=== PATIENT | female | born 1950 | race Caucasian/White ===

== ENCOUNTER → 2017-03-03 | Outpatient (CLI) | payer OTHER ==
[~2017-03-03] MED LIST: ESTR0.3T PO; EZET10TA63 PO; FENO48TA9 PO; GLCSR500 PO
[2017-03-03 13:51] LABS: HEMOGLOBIN A1C 6.5 % (4.5-5.6)
[2017-03-03 14:18] LABS: BASO % 0.4 %; BASO ABS # 0.03 K/uL (0-0.2); EOS % 1.8 %; EOS ABS # 0.14 K/uL (0-0.5); HEMATOCRIT 40.5 % (37-47); HEMOGLOBIN 13.5 g/dL (12.0-16.0); IG# 0.02 K/uL (0.00-0.02); LYMPH % 25.5 %; LYMPH ABS # 1.96 K/uL (1.2-3.4); MEAN CELL VOLUME 95.3 fL (80-100); MEAN CORPUSCULAR HEMOGLOBIN 31.8 pg (25-34); MEAN CORPUSCULAR HGB CONC 33.3 g/dl (32-36); MEAN PLATELET VOLUME 12.1 fL (7.4-10.4); MONO % 7.8 %; NEUT % 64.2 %; NEUT ABS # 4.93 K/uL (1.4-6.5); PLATELET COUNT 260 K/uL (130-400); RED CELL DISTRIBUTION WIDTH CV 13.4 % (11.5-14.5); RED CELL DISTRIBUTION WIDTH SD 46.3 fL (36.4-46.3); WHITE BLOOD COUNT 7.68 K/uL (4.8-10.8)
[2017-03-03 14:57] LABS: ALBUMIN 4.3 gm/dl (3.4-5.0); ALT/SGPT 32 U/L (12-78); AST/SGOT 20 U/L (15-37); BLOOD UREA NITROGEN 17 mg/dl (7-18); CALCIUM 9.5 mg/dl (8.5-10.1); CARBON DIOXIDE 30 mmol/L (21-32); CREATININE 0.97 mg/dl (0.60-1.20); GLUCOSE 115 mg/dl (70-99); POTASSIUM 4.2 mmol/L (3.5-5.1); SODIUM 137 mmol/L (136-145)
[2017-03-03 15:09] LABS: ALKALINE PHOSPHATASE 49 U/L (45-117); CHOLESTEROL 259 mg/dl (0-200); LDL CHOLESTEROL CALCULATED 164 mg/dl
== END | disposition home or self-care (01) ==
LOC: C.LABBC 09:54
PROVIDERS: ATTEND Internal Medicine Geriatric Medicine
DX: E11.9 Type 2 diabetes mellitus without complications (principal); I10 Essential (primary) hypertension; E78.5 Hyperlipidemia, unspecified; E03.9 Hypothyroidism, unspecified

== ENCOUNTER → 2017-04-15 | Outpatient (CLI) | payer OTHER ==
--- NOTE | 2017-04-15 15:06 | MAMMOGRAPHY REPORT ---
BILATERAL DIGITAL SCREENING MAMMOGRAM TOMOSYNTHESIS WITH CAD: 04/15/2017 CLINICAL HISTORY: Routine screening. Patient has no complaints. TECHNIQUE: Breast tomosynthesis in addition to standard 2D mammography was performed. Current study was also evaluated with a Computer Aided Detection (CAD) system. COMPARISON: Comparison is made to exam dated: 06/10/2010 mammogram - [facility]. BREAST COMPOSITION: There are scattered areas of fibroglandular density in both breasts. FINDINGS: No suspicious masses, calcifications, or areas of architectural distortion are noted in ei ther breast. There has been no significant interval change compared to prior exams. Scattered bilate ral benign-appearing calcifications are again noted. IMPRESSION: ACR BI-RADS CATEGORY 2: BENIGN There is no mammographic evidence of malignancy. A 1 year screening mammogram is recommended. The pa tient will receive written notification of the results. Approximately 10% of breast cancers are not detected with mammography. A negative mammographic report should not delay biopsy if a clinically suggestive mass is present. Lisa Kamara M.D. ah/:04/15/2017 14:43:59 Garden Consultant: Abbie DEJESUS(Jesus)(Isabel), [facility] letter sent: Normal 1/2 BI-RADS Code: ACR BI-RADS Category 2: Benign
== END | disposition home or self-care (01) ==
LOC: C.MAMM 13:42
PROVIDERS: ATTEND Internal Medicine Geriatric Medicine
DX: Z12.31 Encounter for screening mammogram for malignant neoplasm of breast (principal)

== ENCOUNTER → 2017-07-02 | Outpatient (CLI) | payer OTHER ==
[2017-07-02 12:32] LABS: HEMOGLOBIN A1C 6.9 % (4.5-5.6)
[2017-07-02 12:55] LABS: CREATININE RANDOM URINE 94.6 mg/dl
[2017-07-02 12:56] LABS: ALBUMIN 4.2 gm/dl (3.4-5.0); ALT/SGPT 27 U/L (12-78); AST/SGOT 20 U/L (15-37); BLOOD UREA NITROGEN 17 mg/dl (7-18); CALCIUM 9.1 mg/dl (8.5-10.1); CARBON DIOXIDE 28 mmol/L (21-32); CHOLESTEROL 269 mg/dl (0-200); CREATININE 0.98 mg/dl (0.60-1.20); GLUCOSE 113 mg/dl (70-99); POTASSIUM 4.2 mmol/L (3.5-5.1); SODIUM 134 mmol/L (136-145)
[2017-07-02 13:05] LABS: ALKALINE PHOSPHATASE 48 U/L (45-117); LDL CHOLESTEROL CALCULATED 190 mg/dl; TOTAL PROTEIN 7.7 gm/dl (6.4-8.2)
== END | disposition home or self-care (01) ==
LOC: C.LAB1850 10:54
PROVIDERS: ATTEND Internal Medicine Endocrinology, Diabetes & Metabolism
DX: E11.9 Type 2 diabetes mellitus without complications (principal); E78.5 Hyperlipidemia, unspecified

== ENCOUNTER 2021-09-19 16:03 | Inpatient (IN) ==
[2021-09-19 18:04] LABS: Hematocrit (blood only) 37.4 % (34.1-44.9); Hemoglobin 12.7 g/dl (12.0-16.0); Immature Granulocytes # (auto) 0.03 K/uL (0.00-0.02); Immature Granulocytes % (auto) 0.4 %; Lymphocytes # (auto) 0.91 K/uL (1.2-3.4); Lymphocytes % (auto) 12.5 %; Mean Corpuscular Hemoglobin 31.1 pg (25.0-34.0); Mean Corpuscular Volume 91.7 fL (80.0-100.0); Mean Platelet Volume 11.4 fL (9.4-12.3); Monocytes # (auto) 0.48 K/uL (0.24-0.82); Monocytes % (auto) 6.6 %; Neutrophils # (auto) 5.84 K/uL (1.4-6.5); Neutrophils % (auto) 80.5 %; Platelet Count 200 K/uL (130-400); RDW Coefficient of Variation 12.5 % (11.5-14.5); RDW Standard Deviation 42.3 fL (36.4-46.3); Red Blood Count 4.08 M/uL (3.93-5.22); White Blood Count 7.26 K/ul (4.8-10.8)
[2021-09-19 18:32] LABS: Alanine Aminotransferase 21 U/L (7-52); Albumin Globulin Ratio 1.5 (0.9-2); Albumin Level 4.6 gm/dl (3.4-5.0); Alkaline Phosphatase 63 U/L (34-104); Anion Gap 8 (3-11); Aspartate Aminotransferase 20 U/L (13-39); BUN Creatinine Ratio 20.2 (10-20); Bilirubin,Total 0.3 mg/dl (0.2-1.0); Blood Urea Nitrogen 18 mg/dl (6-23); Carbon Dioxide 27 mmol/L (21-32); Chloride 92 mmol/L (98-107); Est GFR (African American) 76.1 ml/min; Est GFR (Non-African American) 65.7 ml/min; Globulin 3.1 gm/dl (2.5-4.0); Glucose 183 mg/dl (70-99(Fasting)); Sodium 127 mmol/L (136-145); Total Protein 7.7 gm/dl (6.0-8.3)
[2021-09-19] MEDS ORDERED: KETOROLAC TROMETHAMINE 15 MG/ML VIAL IV ONE (19:03)
--- NOTE | 2021-09-19 19:03 | Emergency Department Note ---
Impression & Plan Acute hyponatremia, Neck pain on right side, COVID-19 ED Provider Note INFORMANT: Patient ED PROVIDER(S): Juan A Guerrero MD CHIEF COMPLAINT: Neck pain PLAN: Disposition: Admitted Condition: Good Outpatient prescription management: none Referral: None MEDICAL DECISION MAKING: Patient presented because of neck pain. Physical examination did not reveal any significant abnormalities. She underwent CT imaging. Patient also had blood work done as well as COVID testing. Patient was found to be hyponatremic which was new for her by history except for right after the postoperative period. She was also found to have a positive COVID test. Patient was hydrated gently. Further management in the hospital will be necessary. Consultation was made with Dr. Renzo Naylor of the [facility] service. Patient was evaluated in the ER for further management. Triage Nursing notes reviewed and agree them. Vital Signs: reviewed and remarkable for no significant abnormalities Differential diagnosis: Cervical strain, fracture, cervical disc disease, lymphadenitis, meningitis, tumor, arterial dissection, thyroiditis, parotitis, mastoiditis, neurologic, cardiovascular, as well as other pathologies. Diagnostics interpreted by me: EC-lead ECG rhythm normal sinus rhythm at 70 bpm. Left axis deviation. No ischemia or ectopy. No change from 21 May 2019 Cardiac Monitoring: Cardiac monitoring ordered by me: The patient was placed on continuous cardiac monitoring and observed. It revealed a normal sinus rhythm at 60 beats per minute without ectopy or evidence of dysrhythmia. Imaging studies: CT imaging of the neck with contrast was negative for acute pathology per radiology. HPI: The patient is a 71 year old female who presents to the Emergency Room with complaints of right sided neck pain. This started this week and is persisting. The patient also notes the following associated symptoms, swelling. no trauma. Saw ENT, Dr. Juarez and was told there was swelling behind ear but no OM/OE. Started on antibiotic, zithromax and prednisone. The patient has found no relieving factors. Current pain is rated as 5/10. Pt denies LOC, headache, fevers, chills, diaphoresis, visual changes, chest pain, breathing difficulties, nausea, vomiting, abdominal pain, back pain, melena, hematochezia, urinary symptoms, numbness, weakness, lymphadenopathy, rash, or other complaints. ROS: See above HPI for pertinent positives & negatives. A total of 10 systems reviewed and were otherwise negative. PAST MEDICAL HISTORY:See Below , cervical radiculopathy PAST SURGICAL HISTORY:See Below, cervical fusion 07/29/21 FAMILY HISTORY:See Below SOCIAL HISTORY:See Below, retired HOME MEDICATIONS:See Below ALLERGIES:See Below VITALS:See Below PHYSICAL EXAMINATION: GENERAL: Awake, alert, uncomfortable-appearing, in no distress HENT: Normocephalic, atraumatic. Oropharynx unremarkable. EYES: Normal conjunctiva. Sclera non-icteric. NECK: Soft. Minimal tenderness around the angle of the mandible but no obvious gross abnormality. No masses. RESPIRATORY: Clear to auscultation. No wheezes. No rales. Normal respiratory effort. CARDIAC: Normal rate. Normal rhythm. No murmurs. No rubs. Extremities warm and well perfused. Pulses equal. No JVD. GI: Soft, non-distended. No tenderness to palpation. No rebound or guarding. No masses. RECTAL: Deferred. MUSCULOSKELETAL: Atraumatic. Chest examination reveals no tenderness. The back is symmetrical on inspection without obvious abnormality. There is no CVA tenderness to palpation. No joint edema. LOWER EXTREMITIES: Calves are equal size bilaterally and non-tender. No edema. No discoloration. NEURO: Normal sensorium. No sensory or motor deficits noted. SKIN: No rash or jaundice noted. Juan A Guerrero MD Past Med/Surg History Medical History Depression Diabetes mellitus, type 2 Hyperlipidemia Hypertension Hypothyroidism Osteoarthritis Statin myopathy Tubular adenoma Surgical History History of colonoscopy with polypectomy History of nasal septoplasty History of shoulder surgery History of total abdominal hysterectomy and bilateral salpingo-oophorectomy History of wisdom tooth extraction Family History Mother T2DM (type 2 diabetes mellitus) Hypertension Sister T2DM (type 2 diabetes mellitus) Coronary heart disease Heart disease Breast cancer Father Family history of diabetes mellitus Coronary heart disease Stroke Heart disease T2DM (type 2 diabetes mellitus) Sister T2DM (type 2 diabetes mellitus) Sister T2DM (type 2 diabetes mellitus) Other No family history of adverse response to anesthesia No family history of bleeding disorder Denies family history of Ovarian cancer Prostate cancer Hearing loss Allergies Myocardial infarction Lung cancer Colorectal cancer Asthma Social History Smoking Status: Never smoker Second Hand Exposure: No (father smoked cigars); Hx Alcohol Use: Yes Alcohol type: hard liquor Alcohol Intake Frequency: Monthly or Less Alcohol Intake Frequency Comment: social Hx Substance Use: No Preferred Language: Martiniquais Communication Ability: Effective Visual Impairment: Limited Hearing Ability: Normal Canceling And Cutting Control Clerk Required: No Beliefs That Will Affect Care: None marital status: / Current Living Situation: Alone current occupational status: retired How many Children do You have: 2 Feels Safe at Home: Yes Childhood Exposure to Second-Hand Smoke: Yes (father smoked cigars ) caffeine: Yes (drinks soda ) Dental Care, Regularly: Yes Physical Activity Frequency: 3-4 Times per Week Seatbelt Use: always Sunscreen Use: No Assistive Devices: Glasses Allergies Allergies Allergy/AdvReac Type Severity Reaction Status Date / Time amoxicillin [From Augmentin] Allergy Severe Unknown Verified 09/19/21 21:41 clavulanic acid Allergy Severe Unknown Verified 09/19/21 21:41 [From Augmentin] niacin Allergy Mild "real Verified 09/19/21 21:41 flushed and passed out" sertraline AdvReac Mild stomach Verified 09/19/21 21:41 burning Home Meds Home Medications Medication Instructions Recorded Confirmed aspirin 81 mg tablet,delayed 81 mg PO DAILY 08/07/20 09/19/21 release blood sugar diagnostic (OneTouch #10 ea 08/07/20 09/19/21 Verio test strips) Previous Rx's Medication Instructions Recorded metformin 500 mg tablet 1,000 mg PO BID 90 days #360 tabs 04/08/20 levothyroxine 50 mcg tablet 75 mcg PO .COMPLEX #135 tabs 12/09/20 lisinopril 40 mg tablet 40 mg PO QAM #90 tabs 06/04/21 azithromycin 250 mg tablet See Rx Instructions PO .COMPLEX #6 09/17/21 tabs methylprednisolone 4 mg tablets in See Rx Instructions PO DAILY 6 09/17/21 a dose pack (Medrol (Flavio)) days #21 ea Results & Data (ED) Vital Signs Vital Signs - 24 hr 09/19/21 16:08 09/19/21 18:39 09/19/21 19:41 Temperature 36.1 C L Temperature Source Temporal Artery Scan Pulse Rate 61 Pulse Rate [Right Finger] 55 L 55 L Respiratory Rate 17 16 14 Respiratory Effort / Characteristics Non-Labored Respiratory Depth Normal Blood Pressure 139/67 Blood Pressure [Right Arm] 157/75 H 144/81 H Blood Pressure Mean 91 Blood Pressure Mean [Right Arm] 102 102 Blood Pressure Position [Right Arm] Sitting Pulse Oximetry 98 99 100 Oxygen Delivery Method Room Air Room Air Room Air Sepsis Recent Fever Within 48 Hours No Sepsis New/Unexplained Change in Mental Status No Sepsis Action Taken by Nursing No Action Required Laboratory Data Result diagrams: 09/19/21 17:50 09/19/21 17:50 Lab Results 09/19/21 09/19/21 09/19/21 Range/Units 17:50 17:50 19:40 WBC 7.26 (4.8-10.8) K/ul RBC 4.08 (3.93-5.22) M/uL Hgb 12.7 (12.0-16.0) g/dl Hct 37.4 (34.1-44.9) % MCV 91.7 (80.0-100.0) fL MCH 31.1 (25.0-34.0) pg MCHC 34.0 (32.0-36.0) g/dL RDW Std Deviation 42.3 (36.4-46.3) fL RDW Coeff of Deb 12.5 (11.5-14.5) % Plt Count 200 (130-400) K/uL MPV 11.4 (9.4-12.3) fL Immature Gran % (Auto) 0.4 % Neut % (Auto) 80.5 % Lymph % (Auto) 12.5 % [place] % (Auto) 6.6 % Eos % (Auto) 0.0 % Baso % (Auto) 0.0 % Neut # (Auto) 5.84 (1.4-6.5) K/uL Lymph # (Auto) 0.91 L (1.2-3.4) K/uL [place] # (Auto) 0.48 (0.24-0.82) K/uL Eos # (Auto) 0.00 (0-0.50) K/uL Baso # (Auto) 0.00 (0-0.2) K/uL Immature Gran # (Auto) 0.03 H (0.00-0.02) K/uL Sodium 127 L (136-145) mmol/L Potassium 5.0 (3.5-5.1) mmol/L Chloride 92 L (98-107) mmol/L Carbon Dioxide 27 (21-32) mmol/L Anion Gap 8 (3-11) BUN 18 (6-23) mg/dl Creatinine 0.89 (0.6-1.2) mg/dl Est Cr Clr Drug Dosing Not Reportable Est GFR ( Amer) 76.1 ml/min Est GFR (Non-Af Amer) 65.7 ml/min BUN/Creatinine Ratio 20.2 H (10-20) Glucose 183 H (70-99(Fasting)) mg/dl Calcium 9.0 (8.5-10.1) mg/dl Total Bilirubin 0.3 (0.2-1.0) mg/dl AST 20 (13-39) U/L ALT 21 (7-52) U/L Alkaline Phosphatase 63 (34-104) U/L Total Protein 7.7 (6.0-8.3) gm/dl Albumin 4.6 (3.4-5.0) gm/dl Globulin 3.1 (2.5-4.0) gm/dl Albumin/Globulin Ratio 1.5 (0.9-2) SARS-CoV-2, RNA, NAAT POSITIVE A* (NEGATIVE) Administered Medications Discontinued Medications Ioversol (Optiray 320 100ml) 94 ml IV ONCE ONE Stop: 09/19/21 19:59 Last Admin: 09/19/21 20:00 Dose: 94 ml Documented By: [facility] Ketorolac Tromethamine (Ketorolac Tromethamine 15 Mg/Ml Vial) 10 mg IV NOW ONE Stop: 09/19/21 19:04 Last Admin: 09/19/21 19:33 Dose: 10 mg Documented By: AM Imaging Data Radiologist's Impression: Soft Tissue Neck CT 09/19/21 19:03 CT soft tissue neck w con CLINICAL HISTORY: right neck pain, hx of c4-5 fusion Technique: Axial CT images of the soft tissues of the neck were obtained following intravenous administration of 100 cc of Omnipaque 300. Automated dose lowering techniques and/or adjustment according to patient size were utilized for this exam. CT DOSE: 361.89 mGy.cm Comparison: None available at the time of this dictation. Findings: There are no masses or inflammatory changes seen within the soft tissues of the neck. The oropharynx, hypopharynx, larynx, and trachea are patent. No enlarged lymph nodes are seen. The parotid glands, submandibular glands, and thyroid gland are unremarkable. Imaged portions of the brain parenchyma are unremarkable. The paranasal sinuses and mastoid air cells are normal in appearance. Anterior cervical fixation hardware is seen. Impression: No acute abnormality is seen. Spinal fixation hardware is noted. ACT 112: Negative or not required by law. Electronically signed by: Willem Medrano M.D. 09/19/2021 8:18 PM Discharge Plan Visit Data Chief Complaint: Neck Injury/Pain Stated Complaint: PAIN BEHIND EAR DOWN NECK INTO SHOULDER ED Provider: Juan A Guerrero Discharge Problem: Acute hyponatremia, Neck pain on right side, COVID-19 Patient Disposition: Admitted As Inpatient Discharge Instructions Interventions: ED Discharge Assessment Last Done: 09/20/21 00:26
[2021-09-19] MEDS ORDERED: OPTIRAY 320 100ml IV ONE (19:58)
--- NOTE | 2021-09-19 20:19 | CT Scan Report ---
CT soft tissue neck w con CLINICAL HISTORY: right neck pain, hx of c4-5 fusion Technique: Axial CT images of the soft tissues of the neck were obtained following intravenous admini stration of 100 cc of Omnipaque 300. Automated dose lowering techniques and/or adjustment according t o patient size were utilized for this exam. CT DOSE: 361.89 mGy.cm Comparison: None available at the time of this dictation. Findings: There are no masses or inflammatory changes seen within the soft tissues of the neck. The oropharynx, hypopharynx, larynx, and trachea are patent. No enlarged lymph nodes are seen. The parotid glands, s ubmandibular glands, and thyroid gland are unremarkable. Imaged portions of the brain parenchyma are unremarkable. The paranasal sinuses and mastoid air cell s are normal in appearance. Anterior cervical fixation hardware is seen. Impression: No acute abnormality is seen. Spinal fixation hardware is noted. ACT 112: Negative or not required by law. Electronically signed by: Willem Medrano M.D. 09/19/2021 8:18 PM
--- NOTE | 2021-09-19 22:08 | History & Physical Report ---
Date of Service September 19, 2021 Assessment & Plan (1) Radiculopathy, cervicothoracic region: Plan: Right upper extremity radiculopathy/status post recent cervical spine fusion at C5-6 and discectomy- Patient's symptoms are most consistent with a cervical radiculopathy She did have a CT of soft tissue of neck which was negative Order MRI cervical spine without contrast Acetaminophen 650 mg p.o. every 6 hours as needed mild pain or fever Tramadol 50 mg p.o. every 6 hours as needed moderate pain Toradol 15 mg IV every 6 hours as needed severe pain (2) S/P cervical spinal fusion: Plan: See above (3) Hypothyroidism: Plan: Continue levothyroxine 50 mcg daily (4) Hypertension: Plan: Continue lisinopril 40 mg every morning and aspirin 81 mg daily (5) Diabetes mellitus, type 2: Plan: Hold metformin Placed on Accu-Cheks before meals and at bedtime with NovoLog coverage per scale Check hemoglobin A1c (6) Acute hyponatremia: Plan: Sodium 127 upon admission Likely secondary to decreased oral intake over the past few days NSS at 125 mils per hour x1 L and then repeat laboratories in a.m. (7) Asymptomatic COVID-19 virus infection: Plan: Routine screening for admission was COVID-19 positive Patient without symptoms, however, will be placed on precautions per protocol History of Present Illness Chief Complaint: The patient presents to the emergency department with 2 days of persistent pain from her right side of her neck to her right shoulder Primary Care Provider: Quentin Beck MD The patient is a 71-year-old female with a past medical history including depression, SNHL, C8 cervical radiculopathy, left SI joint pain, eustachian tube dysfunction, allergic fungal sinusitis, osteoarthritis, hypothyroidism, hypertension, hyperlipidemia, diabetes mellitus type 2 and status post cervical discectomy and C5-C6 fusion at [facility]. She presents with symptoms as noted above. She denies any change in activities that she is aware of that precipitated return to this discomfort. She had recently been seen by Dr. HARVEY, ENT, who placed her on methylprednisolone and a Z-Flavio for right earache and hoarseness. Allergies Allergy/AdvReac Type Severity Reaction Status Date / Time amoxicillin [From Augmentin] Allergy Severe Unknown Verified 09/19/21 21:41 clavulanic acid Allergy Severe Unknown Verified 09/19/21 21:41 [From Augmentin] niacin Allergy Mild "real Verified 09/19/21 21:41 flushed and passed out" sertraline AdvReac Mild stomach Verified 09/19/21 21:41 burning Home Medications Medication Instructions Recorded Confirmed Type metformin 500 mg tablet 1,000 mg PO BID 90 days #360 tabs 04/08/20 09/19/21 Rx aspirin 81 mg tablet,delayed 81 mg PO DAILY 08/07/20 09/19/21 History release blood sugar diagnostic (OneTouch #10 ea 08/07/20 09/19/21 History Verio test strips) levothyroxine 50 mcg tablet 75 mcg PO .COMPLEX #135 tabs 12/09/20 09/19/21 Rx lisinopril 40 mg tablet 40 mg PO QAM #90 tabs 06/04/21 09/19/21 Rx azithromycin 250 mg tablet See Rx Instructions PO .COMPLEX #6 09/17/21 09/19/21 Rx tabs methylprednisolone 4 mg tablets in See Rx Instructions PO DAILY 6 09/17/21 09/19/21 Rx a dose pack (Medrol (Flavio)) days #21 ea Past Med/Surg History Medical History Depression Diabetes mellitus, type 2 Hyperlipidemia Hypertension Hypothyroidism Osteoarthritis Statin myopathy Tubular adenoma Surgical History History of colonoscopy with polypectomy History of nasal septoplasty History of shoulder surgery History of total abdominal hysterectomy and bilateral salpingo-oophorectomy History of wisdom tooth extraction Family History Mother T2DM (type 2 diabetes mellitus) Hypertension Sister T2DM (type 2 diabetes mellitus) Coronary heart disease Heart disease Breast cancer Father Family history of diabetes mellitus Coronary heart disease Stroke Heart disease T2DM (type 2 diabetes mellitus) Sister T2DM (type 2 diabetes mellitus) Sister T2DM (type 2 diabetes mellitus) Other No family history of adverse response to anesthesia No family history of bleeding disorder Denies family history of Ovarian cancer Prostate cancer Hearing loss Allergies Myocardial infarction Lung cancer Colorectal cancer Asthma Social History Smoking Status: Never smoker Second Hand Exposure: No (father smoked cigars); Hx Alcohol Use: Yes Alcohol type: hard liquor Alcohol Intake Frequency: Monthly or Less Alcohol Intake Frequency Comment: social Hx Substance Use: No Preferred Language: Polish Communication Ability: Effective Visual Impairment: Limited Hearing Ability: Normal Hammerer Helper Required: No Beliefs That Will Affect Care: None marital status: / Current Living Situation: Alone current occupational status: retired How many Children do You have: 2 Feels Safe at Home: Yes Childhood Exposure to Second-Hand Smoke: Yes (father smoked cigars ) caffeine: Yes (drinks soda ) Dental Care, Regularly: Yes Physical Activity Frequency: 3-4 Times per Week Seatbelt Use: always Sunscreen Use: No Assistive Devices: Glasses Review of Systems Review of Systems: The patient denies chest pain, palpitations, shortness of breath, dyspnea on exertion, cough, lower extremity swelling, fevers, chills, sweats, weight change, fatigue, nausea, vomiting, diarrhea , constipation, abdominal pain, pelvic pain, blood in urine or stool, dysuria, urinary frequency or urgency, lightheadedness, dizziness, headache, memory loss, loss of consciousness, rash, abnormal bruising or bleeding, imbalance, focal or generalized weakness, numbness or tingling in legs, generalized arthralgias or myalgias, or night sweats. The review of systems is otherwise negative other than for that already noted above, and at least 10 systems have been reviewed. Physical Exam Physical Exam: The patient is awake, alert and oriented 3, well developed and well nourished, normocephalic and atraumatic, lying in bed and in no acute distress. HEENT--PERRL, EOMI, mucous membranes and oropharynx mildly dry. Neck--supple. No JVD. No bruits. Thyroid normal, trachea midline, no toshia opathy. Heart--normal S1 and S2. No murmurs, rubs or gallops. Lungs--clear bilaterally, no respiratory distress, no accessory muscle use. Abdomen--normal bowel sounds and soft. Nontender. Nondistended, no hernias or masses, no organomegaly. Extremities--no cyanosis or clubbing. No edema. Dermatologic--normal skin turgor, normal color, no abnormal lymph nodes, no rash. Neurologic--cranial nerves II through XII grossly intact. Rheumatologic--normal range of motion. Psychiatric--normal affect. Results & Data Results & Data ([facility]) Vital Signs (Past 12 Hours) Vital Signs Temp Pulse Pulse Resp BP BP Pulse Ox 09/19/21 19:41 55 L 14 144/81 H 100 09/19/21 18:39 55 L 16 157/75 H 99 09/19/21 16:08 36.1 C L 61 17 139/67 98 O2 Del Method 09/19/21 19:41 Room Air 09/19/21 18:39 Room Air 09/19/21 16:08 Room Air Laboratory Results Laboratory Results WBC 7.26 K/ul (4.8-10.8) 09/19/21 17:50 RBC 4.08 M/uL (3.93-5.22) 09/19/21 17:50 Hgb 12.7 g/dl (12.0-16.0) 09/19/21 17:50 Hct 37.4 % (34.1-44.9) 09/19/21 17:50 MCV 91.7 fL (80.0-100.0) 09/19/21 17:50 MCH 31.1 pg (25.0-34.0) 09/19/21 17:50 MCHC 34.0 g/dL (32.0-36.0) 09/19/21 17:50 RDW Std Deviation 42.3 fL (36.4-46.3) 09/19/21 17:50 RDW Coeff of Deb 12.5 % (11.5-14.5) 09/19/21 17:50 Plt Count 200 K/uL (130-400) 09/19/21 17:50 MPV 11.4 fL (9.4-12.3) 09/19/21 17:50 Immature Gran % (Auto) 0.4 % 09/19/21 17:50 Neut % (Auto) 80.5 % 09/19/21 17:50 Lymph % (Auto) 12.5 % 09/19/21 17:50 [place] % (Auto) 6.6 % 09/19/21 17:50 Eos % (Auto) 0.0 % 09/19/21 17:50 Baso % (Auto) 0.0 % 09/19/21 17:50 Neut # (Auto) 5.84 K/uL (1.4-6.5) 09/19/21 17:50 Lymph # (Auto) 0.91 K/uL (1.2-3.4) L 09/19/21 17:50 [place] # (Auto) 0.48 K/uL (0.24-0.82) 09/19/21 17:50 Eos # (Auto) 0.00 K/uL (0-0.50) 09/19/21 17:50 Baso # (Auto) 0.00 K/uL (0-0.2) 09/19/21 17:50 Immature Gran # (Auto) 0.03 K/uL (0.00-0.02) H 09/19/21 17:50 Sodium 127 mmol/L (136-145) L 09/19/21 17:50 Potassium 5.0 mmol/L (3.5-5.1) 09/19/21 17:50 Chloride 92 mmol/L (98-107) L 09/19/21 17:50 Carbon Dioxide 27 mmol/L (21-32) 09/19/21 17:50 Anion Gap 8 (3-11) 09/19/21 17:50 BUN 18 mg/dl (6-23) 09/19/21 17:50 Creatinine 0.89 mg/dl (0.6-1.2) 09/19/21 17:50 Est Cr Clr Drug Dosing Not Reportable 09/19/21 17:50 Est GFR ( Amer) 76.1 ml/min 09/19/21 17:50 Est GFR (Non-Af Amer) 65.7 ml/min 09/19/21 17:50 BUN/Creatinine Ratio 20.2 (10-20) H 09/19/21 17:50 Glucose 183 mg/dl (70-99(Fasting)) H 09/19/21 17:50 Calcium 9.0 mg/dl (8.5-10.1) 09/19/21 17:50 Total Bilirubin 0.3 mg/dl (0.2-1.0) 09/19/21 17:50 AST 20 U/L (13-39) 09/19/21 17:50 ALT 21 U/L (7-52) 09/19/21 17:50 Alkaline Phosphatase 63 U/L (34-104) 09/19/21 17:50 Total Protein 7.7 gm/dl (6.0-8.3) 09/19/21 17:50 Albumin 4.6 gm/dl (3.4-5.0) 09/19/21 17:50 Globulin 3.1 gm/dl (2.5-4.0) 09/19/21 17:50 Albumin/Globulin Ratio 1.5 (0.9-2) 09/19/21 17:50 SARS-CoV-2, RNA, NAAT POSITIVE (NEGATIVE) A* 09/19/21 19:40 Impressions Soft Tissue Neck CT 09/19/21 19:03 CT soft tissue neck w con CLINICAL HISTORY: right neck pain, hx of c4-5 fusion Technique: Axial CT images of the soft tissues of the neck were obtained following intravenous administration of 100 cc of Omnipaque 300. Automated dose lowering techniques and/or adjustment according to patient size were utilized for this exam. CT DOSE: 361.89 mGy.cm Comparison: None available at the time of this dictation. Findings: There are no masses or inflammatory changes seen within the soft tissues of the neck. The oropharynx, hypopharynx, larynx, and trachea are patent. No enlarged lymph nodes are seen. The parotid glands, submandibular glands, and thyroid gland are unremarkable. Imaged portions of the brain parenchyma are unremarkable. The paranasal sinuses and mastoid air cells are normal in appearance. Anterior cervical fixation hardware is seen. Impression: No acute abnormality is seen. Spinal fixation hardware is noted. ACT 112: Negative or not required by law. Electronically signed by: Willem Medrano M.D. 09/19/2021 8:18 PM Code Status & VTE Plan Code Status Full code VTE Prophylaxis Plan VTE Prophylaxis will be ordered: Yes PG Care Time/CCT Total # of Minutes Spent Total Time Spent with Patient: Total time spent is greater than 50% in coordination of care (as documented) at patient's floor/unit and/or counseling patient: Coding Level of Care Code INT OBSERVATION CARE 71M LVL 3 Diagnoses Radiculopathy, cervicothoracic region M54.13 S/P cervical spinal fusion Z98.1 Hypothyroidism E03.9 Hypertension I10 Diabetes mellitus, type 2 E11.9 Acute hyponatremia E87.1 Asymptomatic COVID-19 virus infection U07.1
[2021-09-20] MEDS ORDERED: GLUCOSE 10 TAB/TUBE PO PRN (01:35)
[2021-09-20] MEDS ORDERED: GLUCOSE 40% GEL 15 GM TUBE PO PRN (01:35)
[2021-09-20] MEDS ORDERED: GLUCAGON FOR INJ 1 MG VIAL SQ PRN (01:35)
[2021-09-20] MEDS ORDERED: CARBOHYDRATES FOR HYPOGLYCEMIA PO PRN (01:35)
[2021-09-20] MEDS ORDERED: DEXTROSE 50% 50 ML SYRINGE IV PRN (01:35)
[2021-09-20] MEDS ORDERED: SODIUM CHLORIDE 0.9% 1000ML 1,000 ML IV SCH (01:35)
[2021-09-20] MEDS: traMADol HCL 50 MG TABLET PO PRN ×3 (02:26→11:48)
[2021-09-20] MEDS: ACETAMINOPHEN 325 MG TAB PO PRN ×2 (03:53→08:56)
[2021-09-20] MEDS: KETOROLAC TROMETHAMINE 15 MG/ML VIAL IV PRN ×2 (05:51→16:16)
[2021-09-20] MEDS: LEVOTHYROXINE SODIUM 75 MCG TABLET PO SCH (05:52)
[2021-09-20 06:58] LABS: Albumin Globulin Ratio 1.5 (0.9-2); Albumin Level 3.8 gm/dl (3.4-5.0); BUN Creatinine Ratio 19.5 (10-20); Bilirubin,Total 0.3 mg/dl (0.2-1.0); Calcium 8.1 mg/dl (8.5-10.1); Creatinine Clr Calc Pharmacy 58.7 ml/min; Est GFR (African American) 90.7 ml/min; Est GFR (Non-African American) 78.2 ml/min; Globulin 2.5 gm/dl (2.5-4.0); Magnesium 1.9 mg/dl (1.7-2.4); Potassium 4.3 mmol/L (3.5-5.1); Total Protein 6.3 gm/dl (6.0-8.3)
[2021-09-20] MEDS: ASPIRIN 81 MG ECTAB PO SCH (07:45)
[2021-09-20] MEDS: lisinopril 40 MG TAB PO SCH (07:45)
[2021-09-20 07:46] LABS: Estimated Average Glucose 160 mg/dl; Hemoglobin A1C 7.2 % (4.5-5.6)
[2021-09-20] MEDS: INSULIN ASPART PER UNIT SC SCH ×4 (08:58→21:25)
--- NOTE | 2021-09-20 09:35 | Magnetic Resonance Report ---
MRI OF THE CERVICAL SPINE WITHOUT IV CONTRAST CLINICAL HISTORY: Right upper extremity radiculopathy. COMPARISON STUDY: CT scan of the neck dated 09/19/2021. TECHNIQUE: MRI of the cervical spine is performed utilizing various T1 and T2-weighted sequences in t he axial and sagittal planes. IV contrast was not administered for this examination. The examination is degraded by motion artifact, as well as by susceptibility artifact from metallic spinal hardware. FINDINGS: Cervical spine: Vertebral body height and alignment are maintained throughout the cervical spine. Min imal anterolisthesis is noted at C7-T1. There is straightening of the cervical lordosis. There is pos toperative change of anterior spinal fusion seen at C5-C6. The atlantodental articulation is maintain ed. The spinous processes appear intact. No destructive bony lesion is seen. Intervertebral discs: There has been discectomy at C5-C6. Disc desiccation is noted at the remaining cervical levels. The disc spaces are preserved. Spinal cord: The cervical cord is normal in morphology and signal intensity. C2-C3: Uncovertebral and facet arthropathy contribute to mild bilateral neural foraminal stenosis, le ft greater than right. C3-C4: There is a left lateral disc extrusion. In conjunction with facet arthropathy, this contribute s to severe left-sided subarticular stenosis and impinges on the exiting left C4 nerve root. Uncovert ebral and facet arthropathy contribute to mild neural foraminal narrowing on the right. The central c anal appears clear. C4-C5: A posterior disc osteophyte complex minimally effaces the ventral subarachnoid space. There is mild right lateral disc bulge which contributes to mild to moderate right neural foraminal stenosis. The left neural foramen is clear. C5-C6: Mild osteophytosis minimally effaces the ventral subarachnoid space. Predominantly facet arthr opathy contributes to mild bilateral neural foraminal narrowing. C6-C7: Facet arthropathy is of no consequence. The central canal and neural foramina are patent. Ther e is minimal posterior disc bulge. The central canal is clear. Suspected at least mild to moderate bi lateral neural foraminal stenosis at this level. Soft tissues: The prevertebral and paraspinous soft tissues are normal as visualized. Brain parenchyma: The imaged brain parenchyma at the skull base is within normal limits. IMPRESSION: 1. Motion degraded examination. 2. There is postoperative change from anterior fusion at C5-C6. 3. There is a large left lateral disc extrusion at C3-C4 which impinges the exiting left C4 nerve renuka t. 4. Milder spondylotic change at additional levels as above. 5. The cervical cord is normal in morphology and signal intensity. Dictated: 09/20/2021 7:52 AM Transcribed: 09/20/2021 9:16 AM Annamarie [id number] [facility] Electronically signed by: Chet Buck M.D. 09/20/2021 9:34 AM
[2021-09-20] MEDS ORDERED: oxyCODONE HCL IR 5 MG TAB (IMMEDIATE RELEASE) PO PRN (11:57)
[2021-09-20] MEDS ORDERED: MoRPHine SULFATE 2 MG/ML CARP IV STA (14:11)
[2021-09-20] MEDS: ACETAMINOPHEN 500 MG TAB PO SCH ×2 (14:21→21:04)
[2021-09-20] MEDS: ONDANSETRON INJ 2 MG/ML 2 ML VIAL IV PRN ×2 (14:26→16:16)
[2021-09-20] MEDS ORDERED: LORazepam 0.5 MG TAB PO STA (16:27)
--- NOTE | 2021-09-20 16:34 | Hospitalist Progress Note ---
Date of Service September 20, 2021 Assessment & Plan (1) Radiculopathy, cervicothoracic region: Plan: 07/29/21 - cervical spine discectomy/fusion at C5-6 at [facility]. C5-C6 level intact on MRI of c-spine thus her surgical site is stable and not contributing to current symptoms. Does have large C3-C4 disc herniation but neural compromise is on the LEFT which doesn't necessarily explain the RIGHT sided pain (although her pain is in the C4 dermatomal level on the right on exam). CT of soft tissue of neck was negative. Tramadol, tylenol, oxycodone, and morphine were all ineffective at relieving her pain. In the event that somehow the C3-C4 disc herniation is the cause of her pain will start dexamethasone 4mg IV BID. Ativan 0.5mg x 1 now for nausea/emesis control and for muscle relaxation of the right cervical region. I will consult Dr Cramer from ortho-spine (if he is available) in the am to assess her. Finally, is her pain just simply muscular pain in the setting of her COVID illness? (2) Acute hyponatremia: Plan: Sodium 127 upon admission. With IV fluids there was no correction of her Na level. Urine osm > Serum osm Urine Na >100 Uric acid low SIADH? cause of such?? start salt tabs NOW - give 2gm x 1 now. serial Na levels q4h. may need to transfer to PCU as she would be at risk of worsening MS, seizures, etc if Na continued to drop. (3) COVID-19: Plan: Symptoms started about 5-6 days ago. Symptoms - hoarse voice, sinus congestion, headache, fatigue, poor appetite. No evidence of pneumonia. O2 sats wnl. CXR wnl. No specific Rx needed other than supportive care. (4) S/P cervical spinal fusion: Plan: See above #1 (5) Hypothyroidism: Plan: Continue levothyroxine 50 mcg daily TSH wnl (6) Hypertension: Plan: Continue lisinopril 40 mg every morning and aspirin 81 mg daily (7) Diabetes mellitus, type 2: Plan: Hold metformin. Hemoglobin A1c about 7% With steroids may need to add basal insulin. Adjust novolog as needed. Plan change observation to full admit status left message for pt's daughter on her voicemail this evening Admission and Anticipated Discharge Date Admission Date: September 19, 2021 Subjective prior to my bedside visit the patient had complained to staff of persistent right-sided paraspinal posterior neck pain extending onto the right shoulder just superior to the scapula despite tramadol, tylenol, oxycodone and finally IV morphine she has had no relief of this pain over the course of the day when I visited with her she c/o feeling dizzy and nauseous during the exam portion of the visit - while she was sitting up in bed - the nausea/dizziness worsened and she proceeded to vomit a large amount of thing gastric liquid she reports not having had any nausea/emesis prior to this she mentions being sick for about 1 week - first symptom was sore throat, followed by other URI symptoms seen by ENT Dr Juarez on 09/17 - given scripts for steroid & zithromax despite such her symptoms have continued denies any radicular symptoms going down either arm denies left-sided paraspinal pain denies weakness of arms about the same time as developing the nausea she also had a right frontal headache Review of Systems Review of Systems: gen - no fevers or chills; fatigue & lack of appetite for several days cv - no cp pulm - no cough or dyspnea GI - no abd pain; some nausea & emesis Physical Exam Physical Exam: gen - unwell, active emesis, c/o right posterior paraspinal neck pain, thin neck - no tenderness over the spinous process segments; tender to palpation over the R paraspinal cervical region; restricted active rotation of neck mouth - MMM heart - RRR, s1 s2, no murmur lungs - CTA b/l abd - soft NT ND BS+ ext - no edema, pulses 2+ b/l skin - no rash over posterior neck lymph - no obvious cervical lymph nodes psych - oriented x 3, awake, alert Results & Data Results & Data ([facility]) Vital Signs (Past 12 Hours) Vital Signs Temp Pulse Resp BP Pulse Ox O2 Del Method 09/20/21 16:25 36.7 C 50 L 18 98 Room Air 09/20/21 07:44 36.4 C L 54 L 18 161/77 H 98 Room Air Laboratory Results Na 127 --> 127 --> 125 normal Creatinine serum Osm < urine osm urine Na >100 uric acid 4.1 crp 0 Diagnostic Findings Cervical Spine MRI 09/19/21 22:06 MRI OF THE CERVICAL SPINE WITHOUT IV CONTRAST CLINICAL HISTORY: Right upper extremity radiculopathy. COMPARISON STUDY: CT scan of the neck dated 09/19/2021. TECHNIQUE: MRI of the cervical spine is performed utilizing various T1 and T2- weighted sequences in the axial and sagittal planes. IV contrast was not administered for this examination. The examination is degraded by motion artifact, as well as by susceptibility artifact from metallic spinal hardware. FINDINGS: Cervical spine: Vertebral body height and alignment are maintained throughout the cervical spine. Minimal anterolisthesis is noted at C7-T1. There is straightening of the cervical lordosis. There is postoperative change of anterior spinal fusion seen at C5-C6. The atlantodental articulation is maintained. The spinous processes appear intact. No destructive bony lesion is seen. Intervertebral discs: There has been discectomy at C5-C6. Disc desiccation is noted at the remaining cervical levels. The disc spaces are preserved. Spinal cord: The cervical cord is normal in morphology and signal intensity. C2-C3: Uncovertebral and facet arthropathy contribute to mild bilateral neural foraminal stenosis, left greater than right. C3-C4: There is a left lateral disc extrusion. In conjunction with facet arthropathy, this contributes to severe left-sided subarticular stenosis and impinges on the exiting left C4 nerve root. Uncovertebral and facet arthropathy contribute to mild neural foraminal narrowing on the right. The central canal appears clear. C4-C5: A posterior disc osteophyte complex minimally effaces the ventral subarachnoid space. There is mild right lateral disc bulge which contributes to mild to moderate right neural foraminal stenosis. The left neural foramen is clear. C5-C6: Mild osteophytosis minimally effaces the ventral subarachnoid space. Predominantly facet arthropathy contributes to mild bilateral neural foraminal narrowing. C6-C7: Facet arthropathy is of no consequence. The central canal and neural foramina are patent. There is minimal posterior disc bulge. The central canal is clear. Suspected at least mild to moderate bilateral neural foraminal stenosis at this level. Soft tissues: The prevertebral and paraspinous soft tissues are normal as visualized. Brain parenchyma: The imaged brain parenchyma at the skull base is within normal limits. IMPRESSION: 1. Motion degraded examination. 2. There is postoperative change from anterior fusion at C5-C6. 3. There is a large left lateral disc extrusion at C3-C4 which impinges the exiting left C4 nerve root. 4. Milder spondylotic change at additional levels as above. 5. The cervical cord is normal in morphology and signal intensity. Dictated: 09/20/2021 7:52 AM Transcribed: 09/20/2021 9:16 AM Annamarie [id number] [facility] Electronically signed by: Chet Buck M.D. 09/20/2021 9:34 AM PG Care Time/CCT Total # of Minutes Spent Total Time Spent with Patient: Total time spent is greater than 50% in coordination of care (as documented) at patient's floor/unit and/or counseling patient: Coding Level of Care Code 59902 Subseq Hosp Care Lvl 3 Diagnoses Radiculopathy, cervicothoracic region M54.13 Acute hyponatremia E87.1 COVID-19 U07.1 S/P cervical spinal fusion Z98.1 Hypothyroidism E03.9 Hypertension I10 Diabetes mellitus, type 2 E11.9
[2021-09-20 17:32] LABS: Anion Gap 10 (3-11); BUN Creatinine Ratio 17.3 (10-20); Blood Urea Nitrogen 13 mg/dl (6-23); C Reactive Protein < 0.50 mg/dl (0-0.5); Carbon Dioxide 25 mmol/L (21-32); Chloride 90 mmol/L (98-107); Creatinine Clr Calc Pharmacy 60.3 ml/min; Est GFR (African American) 93.6 ml/min; Est GFR (Non-African American) 80.8 ml/min; Glucose 149 mg/dl (70-99(Fasting)); Potassium 4.1 mmol/L (3.5-5.1); Sodium 125 mmol/L (136-145); Uric Acid 4.1 mg/dl (2.6-7.2)
[2021-09-20] MEDS: dexAMETHasone 4 MG in SYRINGE 0 ML IV SCH (17:34)
[2021-09-20] MEDS: LIDOCAINE 5% 1 PATCH TD SCH (17:34)
[2021-09-20] MEDS ORDERED: SODIUM CHLORIDE 1 GM TABLET PO ONE (18:11)
[2021-09-20] MEDS: SODIUM CHLORIDE 1 GM TABLET PO SCH (23:52)
--- NOTE | 2021-09-20 23:54 | Communication Note ---
Date of Service: September 20, 2021 Night resident note 22:00- repeat BMP at was notable for worsened hyponatremia (125 to 123). Transferred patient to PCU for closer monitoring given seizure risk due to worsening hyponatremia Ordered NaCl PO 2g tid with the first dose tonight Ordered repeat BMP q4h (x3); repeat BMP was drawn at 04:00 showed slightly improved sodium to 124 Rest of management per day team Resident Activity Tracking Resident Involvement: Resident Care Provided and Wildlife Manager Coverage Note Care Provided: Adult Hospital Medicine
[2021-09-21] MEDS: KETOROLAC TROMETHAMINE 15 MG/ML VIAL IV PRN (03:50)
[2021-09-21 04:27] LABS: BUN Creatinine Ratio 17.3 (10-20); Creatinine Clr Calc Pharmacy 55.8 ml/min; Est GFR (African American) 85.3 ml/min; Est GFR (Non-African American) 73.6 ml/min; Potassium 4.8 mmol/L (3.5-5.1)
[2021-09-21] MEDS: dexAMETHasone 4 MG in SYRINGE 0 ML IV SCH ×2 (05:00→17:14)
[2021-09-21] MEDS: INSULIN ASPART PER UNIT SC SCH ×4 (08:11→21:05)
[2021-09-21] MEDS: ACETAMINOPHEN 500 MG TAB PO SCH ×3 (08:53→21:30)
[2021-09-21] MEDS: lisinopril 40 MG TAB PO SCH (08:53)
[2021-09-21] MEDS: ASPIRIN 81 MG ECTAB PO SCH (08:53)
[2021-09-21] MEDS: SODIUM CHLORIDE 1 GM TABLET PO SCH (08:54)
[2021-09-21] MEDS: LIDOCAINE 5% 1 PATCH TD SCH (08:54)
[2021-09-21 09:08] LABS: BUN Creatinine Ratio 16.7 (10-20); Calcium 8.2 mg/dl (8.5-10.1); Creatinine Clr Calc Pharmacy 53.8 ml/min; Est GFR (African American) 81.6 ml/min; Est GFR (Non-African American) 70.4 ml/min; Potassium 5.2 mmol/L (3.5-5.1)
[2021-09-21 11:59] LABS: BUN Creatinine Ratio 17.1 (10-20); Calcium 8.1 mg/dl (8.5-10.1); Creatinine Clr Calc Pharmacy 55.1 ml/min; Est GFR (Non-African American) 72.5 ml/min; Potassium 5.1 mmol/L (3.5-5.1)
[2021-09-21] MEDS: busPIRone 5 MG TAB PO SCH ×2 (12:03→21:35)
--- NOTE | 2021-09-21 12:04 | Nephrology Consultation ---
Date of Consultation September 21, 2021 Assessment & Plan (1) Hyponatremia: Chronic. Cheyanne appears relatively asymptomatic. Euvolemic on exam. Uosm 494. Clinical presentation consistent with SIADH. Etiology unclear. Atypical presentation for adrenal insufficiency, notably while taking dexamethasone. TSH acceptable and thyroid replacement appears adequate. I would have expected to see more response to PO NaCl tablet, unless free water intake is more than reported. Given lack of improvement, I would suggest correction with hypertonic saline and free water restriction. Once sodium improves, consider adding diuretic therapy. Expected rate of correction for 3% saline is 1 mmol/L per 100 ml. Start with ciera us of 100 ml now and repeat as needed. Goal is to correct to ~130-132 mmol/L over the next 24 hours. (2) COVID-19: Appears relatively asymptomatic. Remains on PO steroids for radiculopathy and pain. (3) Hypothyroidism: Clinically euthymic. (4) Hypertension: Euvolemic. Consider addition of a loop diuretic once serum sodium shows adequate improvement. History of Present Illness Reason for Consultation: Hyponatremia Requesting Physician: Fernando Chowdhury Attending Physician: Fernando Chowdhury History of Present Illness Cheyanne Gusman is a 71 year-old female with hypothyroidism, hypertension, DMII, OA/DJD, and cervical disc disease. Nephrology consultation requested today by Dr. Carbajal for assistance in management of hyponatremia. I reviewed the patient's medical history and plan of care with Dr. Carbajal. Cheyanne was admitted to [facility] on 09/19 with right sided neck and shoulder pain. She has known diagnosis of cervicothoracic radiculopathy. In June, she underwent discectomy and fusion at C5-6 at [facility]. Cheyanne reports an episode of dysnatremia following her surgery. She states that this was related to excessive amount of IVF that had been provided. She does not maintain a fluid restriction at home and denied ever hearing a diagnosis of SIADH in the past. She has never seen a night shift manager. Serum creatinine has been normal. Serum sodium from [facility] on July 31 was 133 mmol/L per review of records and 135 mmol/L on August 08. Cheyanne was admitted to [facility] with a serum sodium of 127 mmol/L. Sodium remained stable following IV 0.9% saline replacement. Oral NaCl tablets have been provided when sodium dropped from 123-124 mmol/L. Unfortunately, no improvement noted. TSH 1.5. Cheyanne reports persistent neck and shoulder pain but otherwise she feels well. She was started on a course of corticosteroids and azithromycin prior to admission for URI by her ENT. Cheyanne tested COVID + on admission. She admits that her throat is slightly sore and she has had some sinus congestion. She denies any other symptoms of infection. She remains on dexamethasone. Cheyanne states that she has not bee drinking excessive amounts of fluid. She does not feel dehydrated. She denies fluid retention or edema. Urine osmolality 494. Serum sodium is now 124 mmol/L. Potassium 5.2 mmol/L. HCO3 25 mEq/L. Creatinine 0.84 mg/gL. Allergies Allergy/AdvReac Type Severity Reaction Status Date / Time amoxicillin [From Augmentin] Allergy Severe Unknown Verified 09/19/21 21:41 clavulanic acid Allergy Severe Unknown Verified 09/19/21 21:41 [From Augmentin] niacin Allergy Mild "real Verified 09/19/21 21:41 flushed and passed out" sertraline AdvReac Mild stomach Verified 09/19/21 21:41 burning Home Medications Medication Instructions Recorded Confirmed Type metformin 500 mg tablet 1,000 mg PO BID 90 days #360 tabs 04/08/20 09/19/21 Rx aspirin 81 mg tablet,delayed 81 mg PO DAILY 08/07/20 09/19/21 History release blood sugar diagnostic (OneTouch #10 ea 08/07/20 09/19/21 History Verio test strips) levothyroxine 50 mcg tablet 75 mcg PO .COMPLEX #135 tabs 12/09/20 09/19/21 Rx lisinopril 40 mg tablet 40 mg PO QAM #90 tabs 06/04/21 09/19/21 Rx azithromycin 250 mg tablet See Rx Instructions PO .COMPLEX #6 09/17/21 09/19/21 Rx tabs methylprednisolone 4 mg tablets in See Rx Instructions PO DAILY 6 09/17/21 09/19/21 Rx a dose pack (Medrol (Flavio)) days #21 ea Patient History Medical History Depression Diabetes mellitus, type 2 Hyperlipidemia Hypertension Hypothyroidism Osteoarthritis Statin myopathy Tubular adenoma Surgical History History of colonoscopy with polypectomy History of nasal septoplasty History of shoulder surgery right--bone spur removal History of total abdominal hysterectomy and bilateral salpingo-oophorectomy History of wisdom tooth extraction Family History Mother T2DM (type 2 diabetes mellitus) Hypertension Sister T2DM (type 2 diabetes mellitus) Coronary heart disease Heart disease Breast cancer Father Family history of diabetes mellitus Coronary heart disease Stroke Heart disease T2DM (type 2 diabetes mellitus) Sister T2DM (type 2 diabetes mellitus) Sister T2DM (type 2 diabetes mellitus) Other No family history of adverse response to anesthesia No family history of bleeding disorder Denies family history of Ovarian cancer Prostate cancer Hearing loss Allergies Myocardial infarction Lung cancer Colorectal cancer Asthma Social History Smoking Status: Never smoker Second Hand Exposure: No (father smoked cigars); Hx Alcohol Use: Yes Alcohol type: hard liquor Alcohol Intake Frequency: Monthly or Less Alcohol Intake Frequency Comment: social Hx Substance Use: No Preferred Language: Mongolian Communication Ability: Effective Visual Impairment: Limited Hearing Ability: Normal Carbide Tool Maker Required: No Beliefs That Will Affect Care: None marital status: / Current Living Situation: Alone current occupational status: retired How many Children do You have: 2 Other Information That Helps Us Care for You: No Feels Safe at Home: Yes Safety Concerns: Feels Safe At This Time Childhood Exposure to Second-Hand Smoke: Yes (father smoked cigars ) caffeine: Yes (drinks soda ) Dental Care, Regularly: Yes Physical Activity Frequency: 3-4 Times per Week Seatbelt Use: always Sunscreen Use: No Assistive Devices: Glasses Review of Systems Review of Systems: All systems reviewed & are unremarkable except as noted in HPI & below Physical Exam Constitutional: well developed; no acute distress Eyes: no scleral abnormality and no corneal abnormality ENMT: Mouth: no oral mucosal abnormality and oral mucous membranes not dry Neck: normal visual inspection and trachea midline Respiratory: normal respiratory effort Auscultation: lungs clear to auscultation bilaterally Cardiovascular: Rate/Rhythm: regular rate Heart Sounds: normal S1 and normal S2 Extremities: no edema Musculoskeletal: Extremities: no cyanosis and no clubbing Skin: normal turgor; no lesions Neurologic: Motor/Sensory: no tremor and no asterixis Psychiatric: Orientation: alert and oriented x 3 Results & Data ([facility]) Vital Signs (Past 12 Hours) Vital Signs Temp Pulse Pulse Resp BP Pulse Ox O2 Del Method 09/21/21 08:02 36.4 C L 56 L 18 176/80 H 99 Room Air 09/21/21 07:30 54 L 09/21/21 03:36 56 L Laboratory Results Laboratory Results - last 24 hr 09/20/21 09/20/21 09/20/21 12:41 12:41 16:23 Sodium Potassium Chloride Carbon Dioxide Anion Gap BUN Creatinine Est Cr Clr Drug Dosing Est GFR ( Amer) Est GFR (Non-Af Amer) BUN/Creatinine Ratio Glucose POC Glucose 146 H Osmolality Uric Acid Calcium C-Reactive Protein TSH Urine Osmolality 494 L Ur Random Sodium 127 09/20/21 09/20/21 09/20/21 16:47 16:47 16:47 Sodium 125 L Potassium 4.1 Chloride 90 L Carbon Dioxide 25 Anion Gap 10 BUN 13 Creatinine 0.75 Est Cr Clr Drug Dosing 60.3 Est GFR ( Amer) 93.6 Est GFR (Non-Af Amer) 80.8 BUN/Creatinine Ratio 17.3 Glucose 149 H POC Glucose Osmolality 264 L Uric Acid 4.1 Calcium 8.0 L C-Reactive Protein < 0.50 TSH 1.480 Urine Osmolality Ur Random Sodium 09/20/21 09/20/21 09/21/21 20:48 22:13 03:56 Sodium 123 L 124 L Potassium 4.8 Chloride 92 L Carbon Dioxide 24 Anion Gap 8 BUN 14 Creatinine 0.81 Est Cr Clr Drug Dosing 55.8 Est GFR ( Amer) 85.3 Est GFR (Non-Af Amer) 73.6 BUN/Creatinine Ratio 17.3 Glucose 155 H POC Glucose 142 H Osmolality Uric Acid Calcium 8.0 L C-Reactive Protein TSH Urine Osmolality Ur Random Sodium 09/21/21 09/21/21 09/21/21 07:57 08:11 11:17 Sodium 124 L 123 L Potassium 5.2 H 5.1 Chloride 91 L 91 L Carbon Dioxide 25 25 Anion Gap 8 7 BUN 14 14 Creatinine 0.84 0.82 Est Cr Clr Drug Dosing 53.8 55.1 Est GFR ( Amer) 81.6 84.0 Est GFR (Non-Af Amer) 70.4 72.5 BUN/Creatinine Ratio 16.7 17.1 Glucose 153 H 180 H POC Glucose 136 H Osmolality Uric Acid Calcium 8.2 L 8.1 L C-Reactive Protein TSH Urine Osmolality Ur Random Sodium 09/21/21 11:52 Sodium Potassium Chloride Carbon Dioxide Anion Gap BUN Creatinine Est Cr Clr Drug Dosing Est GFR ( Amer) Est GFR (Non-Af Amer) BUN/Creatinine Ratio Glucose POC Glucose 192 H Osmolality Uric Acid Calcium C-Reactive Protein TSH Urine Osmolality Ur Random Sodium PG Care Time/CCT Total # of Minutes Spent Total Time Spent with Patient: Total time spent is greater than 50% in coordination of care (as documented) at patient's floor/unit and/or counseling patient: Coding Level of Care Code 42798 Office/OBS Consult Lvl 4 Diagnoses Hyponatremia E87.1 COVID-19 U07.1 Hypothyroidism E03.9 Hypertension I10
[2021-09-21] MEDS ORDERED: SODIUM CHLORIDE 3 % 100 ML IV ONE ×2 (12:30→23:35)
--- NOTE | 2021-09-21 12:53 | Hospitalist Progress Note ---
Date of Service September 21, 2021 Assessment & Plan (1) Radiculopathy, cervicothoracic region: Plan: 07/29/21 - cervical spine discectomy/fusion at C5-6 at [facility]. C5-C6 level intact on MRI of c-spine thus her surgical site is stable and not contributing to current symptoms. Does have large C3-C4 disc herniation but neural compromise is on the LEFT which doesn't necessarily explain the RIGHT sided pain (although her pain is in the C4 dermatomal level on the right on exam). CT of soft tissue of neck was negative. Tramadol, tylenol, oxycodone, and morphine were all ineffective at relieving her pain. Pain IS improved today s/p IV dexamethasone and toradol IV along with ativan last pm. I am uncertain if somehow the C3-C4 disc herniation is the cause of her pain. Will ask Dr Cramer from ortho-spine for his opinion. Of note - MRI c-spine (scanned document from 2020) showed the C3-C4 disc herniation but it was small at that time. To be complete - because of development of headache today - will obtain CTAs head/neck - r/o dissection, stroke, aneurysm, etc. (2) Acute hyponatremia: Plan: Sodium 127 upon admission. With IV fluids there was no correction of her Na level. 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 no response to salt tabs with fluid restriction. consulted Dr Kay from nephrology - hypertonic saline to be given today with serial Na levels. appreciate his consult. She will need additional work-up (occult malignancy, etc) to ensure nothing else is driving her SIADH. (3) COVID-19: Plan: Symptoms started about 6 days ago. Symptoms - hoarse voice, sinus congestion, headache, fatigue, poor appetite. No evidence of pneumonia. O2 sats wnl. CXR wnl. No specific Rx needed other than supportive care. (4) S/P cervical spinal fusion: Plan: See above #1 Performed [facility] late June 2021 C5-C6 (5) Hypothyroidism: Plan: Continue levothyroxine 50 mcg daily TSH wnl (6) Hypertension: Plan: Continue lisinopril 40 mg every morning and aspirin 81 mg daily Elevated BPs likely due to pain +/- steroids (7) Diabetes mellitus, type 2: Plan: Hold metformin. Hemoglobin A1c about 7% Cont novolog SSI (8) Depression: Plan: given her Na issues this would be a poor time to introduce medications however, pt requesting psych eval - consult placed for anxiety - try buspar 5mg BID counseling advised - psych can help her secure one for after discharge Plan left message for pt's daughter on her voicemail yesterday evening Admission and Anticipated Discharge Date Admission Date: September 20, 2021 Subjective patient states her right neck is feeling better today, but now she has a right- sided frontal headache no radicular symptoms in either arm she is tearful today - states she has been depressed for at least a year or longer her 2 daughters have also had depression she has never had meds for depression stressors include loss of years ago and feeling lonely (lives alone), worry/anxiety about her health, etc has never had a counselor - states she has tried to secure one to no avail (has called various offices - not taking new patients, too long of a wait, etc) tele overnight wnl Review of Systems Review of Systems: gen - no fevers or chills; appetite still poor; fatigue on going cv - no chest pain pulm - no cough, no dyspnea GI - no further episodes of N/V; no diarrhea; no abd pain musculo - no myalgias ENT - sinus congestion persists Physical Exam Physical Exam: gen - looks better today, but is tearful neck - no tenderness over the spinous process segments; nontender to palpation over the R paraspinal cervical region today; range of motion of neck improved mouth - MMM heart - RRR, s1 s2, no murmur lungs - CTA b/l abd - soft NT ND BS+ ext - no edema, pulses 2+ b/l skin - still no rash over posterior neck psych - oriented x 3, awake, alert, tearful neuro - strength b/l arms 5/5 head - nontender to palpation over frontal & maxillary sinuses Results & Data Results & Data ([facility]) Vital Signs (Past 12 Hours) Vital Signs Temp Pulse Pulse Resp BP Pulse Ox O2 Del Method 09/21/21 12:05 36.7 C 61 18 160/77 H 99 Room Air 09/21/21 08:02 36.4 C L 56 L 18 176/80 H 99 Room Air 09/21/21 07:30 54 L 09/21/21 03:36 56 L Laboratory Results Laboratory Results - last 24 hr 09/20/21 09/20/21 09/20/21 12:41 12:41 16:23 Sodium Potassium Chloride Carbon Dioxide Anion Gap BUN Creatinine Est Cr Clr Drug Dosing Est GFR ( Amer) Est GFR (Non-Af Amer) BUN/Creatinine Ratio Glucose POC Glucose 146 H Osmolality Uric Acid Calcium C-Reactive Protein TSH Urine Osmolality 494 L Ur Random Sodium 127 09/20/21 09/20/21 09/20/21 16:47 16:47 16:47 Sodium 125 L Potassium 4.1 Chloride 90 L Carbon Dioxide 25 Anion Gap 10 BUN 13 Creatinine 0.75 Est Cr Clr Drug Dosing 60.3 Est GFR ( Amer) 93.6 Est GFR (Non-Af Amer) 80.8 BUN/Creatinine Ratio 17.3 Glucose 149 H POC Glucose Osmolality 264 L Uric Acid 4.1 Calcium 8.0 L C-Reactive Protein < 0.50 TSH 1.480 Urine Osmolality Ur Random Sodium 09/20/21 09/20/21 09/21/21 20:48 22:13 03:56 Sodium 123 L 124 L Potassium 4.8 Chloride 92 L Carbon Dioxide 24 Anion Gap 8 BUN 14 Creatinine 0.81 Est Cr Clr Drug Dosing 55.8 Est GFR ( Amer) 85.3 Est GFR (Non-Af Amer) 73.6 BUN/Creatinine Ratio 17.3 Glucose 155 H POC Glucose 142 H Osmolality Uric Acid Calcium 8.0 L C-Reactive Protein TSH Urine Osmolality Ur Random Sodium 09/21/21 09/21/21 09/21/21 07:57 08:11 11:17 Sodium 124 L 123 L Potassium 5.2 H 5.1 Chloride 91 L 91 L Carbon Dioxide 25 25 Anion Gap 8 7 BUN 14 14 Creatinine 0.84 0.82 Est Cr Clr Drug Dosing 53.8 55.1 Est GFR ( Amer) 81.6 84.0 Est GFR (Non-Af Amer) 70.4 72.5 BUN/Creatinine Ratio 16.7 17.1 Glucose 153 H 180 H POC Glucose 136 H Osmolality Uric Acid Calcium 8.2 L 8.1 L C-Reactive Protein TSH Urine Osmolality Ur Random Sodium 09/21/21 11:52 Sodium Potassium Chloride Carbon Dioxide Anion Gap BUN Creatinine Est Cr Clr Drug Dosing Est GFR ( Amer) Est GFR (Non-Af Amer) BUN/Creatinine Ratio Glucose POC Glucose 192 H Osmolality Uric Acid Calcium C-Reactive Protein TSH Urine Osmolality Ur Random Sodium PG Care Time/CCT Total # of Minutes Spent Total Time Spent with Patient: Total time spent is greater than 50% in coordination of care (as documented) at patient's floor/unit and/or counseling patient: Coding Level of Care Code 18612 Subseq Hosp Care Lvl 3 Diagnoses Radiculopathy, cervicothoracic region M54.13 Acute hyponatremia E87.1 COVID-19 U07.1 S/P cervical spinal fusion Z98.1 Hypothyroidism E03.9 Hypertension I10 Diabetes mellitus, type 2 E11.9 Depression F32.A
[2021-09-21] MEDS ORDERED: OPTIRAY 320 125ml IV ONE (17:51)
[2021-09-21] MEDS ORDERED: SODIUM CHLORIDE 3 % 150 ML IV ONE ×2 (18:00→21:06)
--- NOTE | 2021-09-21 18:55 | CT Scan Report ---
CT angio head wo/w CLINICAL HISTORY: R neck pain, R frontal headache COMPARISON STUDY: MRI of the brain January 27, 2021. TECHNIQUE: Unenhanced and arterial phase imaging of the head was performed. Intravenous injection of 120 cc Optiray 320 IV was uneventful. Automated exposure control was utilized for the study. A dose lowering technique was utilized adhering to the principles of ALARA. FINDINGS: No acute intracranial hemorrhage, midline shift or mass effect is present. Ventricular syst em is unremarkable. Basal cisterns are patent. There are no extra axial collections. Mild white matte r hypodensity suggests small vessel disease. There are no findings to suggest acute dural sinus throm bosis or acute territorial infarct. There are no significant calvarial abnormalities. The bilateral M 1, M2, A1 and A2 segments are patent. There is no intracranial aneurysm. There is no central vessel o cclusion. persistence of the right posterior cerebral artery is noted. Posterior circulation is intact. Left vertebral artery is dominant. Major dural sinuses are patent. Mild calcified plaque wit hin the bilateral cavernous carotids is noted. IMPRESSION: 1. No acute intracranial findings. 2. No intracranial aneurysm or central vessel occlusion. ACT 112: Negative or not required by law. Electronically signed by: Trung Covarrubias M.D. 09/21/2021 6:52 PM
--- NOTE | 2021-09-21 19:02 | CT Scan Report ---
CT ANGIOGRAPHY OF THE NECK WITH CONTRAST CLINICAL HISTORY: R neck pain, R frontal headache COMPARISON STUDY: CT of the neck September 19, 2021. Technique: CT angiography of the carotid and vertebral arteries was obtained using Optiray and 3D rec onstruction on an independent workstation. NASCET criteria was utilized. Automated exposure control was utilized for the study. A dose lowering technique was utilized adhering to the principles of ALA RA. Findings: Visualized portions of the lung apices are unremarkable. There is no acute cervical spine f racture. C5-C6 anterior discectomy and fusion is noted. There is no cervical lymphadenopathy. There i s no fluid collection within the neck. The bilateral common carotid, cervical internal carotid and ve rtebral arteries are patent. There is no stenosis within these vessels. Tortuosity of the mid to dist al distal cervical the right vertebral artery is noted. No aneurysm within the neck is noted. There i s mild calcified plaque at the origin of the left subclavian artery without stenosis. Left vertebral artery is dominant. IMPRESSION: No stenosis or dissection within the bilateral common carotid, cervical internal carotid or vertebral arteries. ACT 112: Negative or not required by law. Electronically signed by: Trung Covarrubias M.D. 09/21/2021 7:00 PM
[2021-09-21] MEDS ORDERED: SODIUM CHLORIDE 1 GM TABLET PO SCH (21:00)
[2021-09-21] MEDS: ARTIFICIAL TEARS OP PRN (22:00)
[2021-09-22] MEDS: dexAMETHasone 4 MG in SYRINGE 0 ML IV SCH ×2 (04:36→18:43)
[2021-09-22] MEDS: ARTIFICIAL TEARS OP PRN ×2 (05:45→21:42)
[2021-09-22] MEDS: LEVOTHYROXINE SODIUM 75 MCG TABLET PO SCH (05:46)
[2021-09-22 08:11] LABS: BUN Creatinine Ratio 17.1 (10-20); Calcium 8.2 mg/dl (8.5-10.1); Creatinine Clr Calc Pharmacy 59.5 ml/min; Est GFR (African American) 92.1 ml/min; Est GFR (Non-African American) 79.5 ml/min; Potassium 4.5 mmol/L (3.5-5.1)
[2021-09-22] MEDS: INSULIN ASPART PER UNIT SC SCH ×4 (08:38→21:12)
[2021-09-22] MEDS: SODIUM CHLORIDE 1 GM TABLET PO SCH ×2 (08:49→14:51)
[2021-09-22] MEDS: ACETAMINOPHEN 500 MG TAB PO SCH ×3 (08:49→21:40)
[2021-09-22] MEDS: ASPIRIN 81 MG ECTAB PO SCH (08:50)
[2021-09-22] MEDS: LIDOCAINE 5% 1 PATCH TD SCH (08:51)
[2021-09-22] MEDS: lisinopril 40 MG TAB PO SCH (08:51)
--- NOTE | 2021-09-22 09:35 | Nephrology Progress Note ---
Date of Service September 22, 2021 Assessment & Plan (1) Hyponatremia: Plan: SIADH, etiology unclear. Improving appropriately with IV hypertonic saline. Oral NaCl restarted this AM. Continue 2 gm BID. Repeat metabolic profile this afternoon. Maintain free water restriction, 1.2 L daily. (2) COVID-19: Plan: Appears relatively asymptomatic. (3) Hypothyroidism: Plan: Clinically euthymic. TSH acceptable. (4) Hypertension: Plan: Euvolemic. BP acceptable. Admission and Anticipated Discharge Date Admission Date: September 20, 2021 Subjective No acute events overnight. Headache improved. Shoulder pain persists but tolerable. Appetite good. No acute complaints. Review of Systems Review of Systems: All systems reviewed & are unremarkable except as noted in HPI & below Physical Exam Constitutional: well developed; no acute distress Eyes: no scleral abnormality and no corneal abnormality ENMT: Mouth: no oral mucosal abnormality and oral mucous membranes not dry Neck: normal visual inspection and trachea midline Respiratory: normal respiratory effort Auscultation: lungs clear to auscultation bilaterally Cardiovascular: Rate/Rhythm: regular rate Heart Sounds: normal S1 and normal S2 Extremities: no edema Musculoskeletal: Extremities: no cyanosis and no clubbing Skin: normal turgor; no lesions Neurologic: Motor/Sensory: no tremor and no asterixis Psychiatric: Orientation: alert and oriented x 3 Results & Data ([facility]) Vital Signs (Past 12 Hours) Vital Signs Temp Pulse Pulse Resp BP Pulse Ox O2 Del Method 09/22/21 03:48 36.8 C 61 16 126/67 97 Room Air 09/21/21 23:31 58 L 09/21/21 23:00 36.8 C 60 16 138/75 98 Room Air Laboratory Results Laboratory Results - last 24 hr 09/21/21 09/21/21 09/21/21 11:17 11:52 16:36 Sodium 123 L 123 L Potassium 5.1 Chloride 91 L Carbon Dioxide 25 Anion Gap 7 BUN 14 Creatinine 0.82 Est Cr Clr Drug Dosing 55.1 Est GFR ( Amer) 84.0 Est GFR (Non-Af Amer) 72.5 BUN/Creatinine Ratio 17.1 Glucose 180 H POC Glucose 192 H Calcium 8.1 L 09/21/21 09/21/21 09/21/21 17:01 20:24 22:46 Sodium 128 L Potassium Chloride Carbon Dioxide Anion Gap BUN Creatinine Est Cr Clr Drug Dosing Est GFR ( Amer) Est GFR (Non-Af Amer) BUN/Creatinine Ratio Glucose POC Glucose 175 H 165 H Calcium 09/22/21 09/22/21 07:27 07:39 Sodium 129 L Potassium 4.5 Chloride 99 Carbon Dioxide 24 Anion Gap 6 BUN 13 Creatinine 0.76 Est Cr Clr Drug Dosing 59.5 Est GFR ( Amer) 92.1 Est GFR (Non-Af Amer) 79.5 BUN/Creatinine Ratio 17.1 Glucose 115 H POC Glucose 133 H Calcium 8.2 L PG Care Time/CCT Total # of Minutes Spent Total Time Spent with Patient: Total time spent is greater than 50% in coordination of care (as documented) at patient's floor/unit and/or counseling patient: Coding Level of Care Code 42283 Subseq Hosp Care Lvl 3 Diagnoses Hyponatremia E87.1 COVID-19 U07.1 Hypothyroidism E03.9 Hypertension I10
[2021-09-22] MEDS: busPIRone 5 MG TAB PO SCH ×2 (10:13→21:40)
--- NOTE | 2021-09-22 11:36 | Communication Note ---
Date of Service: September 22, 2021 Patient is COVID positive so will be calling her for psych consult later this afternoon. She spoke with psych liason last night and may be interested in med ication for depression and anxiety once her sodium improves.
--- NOTE | 2021-09-22 13:50 | Psychiatric Consultation ---
Date of Consultation September 22, 2021 Impression / Recommendations Impression 71 yo woman who lives in [place] with a history of depression admitted medically for neck pain and found to be COVID+. Has been experiencing worsening depression and anxiety over the last year in the context of increased social isolation. Acute risk of self-harm is low given denial of SI and future-oriented and motivated to engage with outpatient treatment. Willing to start medication once her sodium improves. (1) MDD (major depressive disorder), recurrent episode, moderate: (2) Anxiety: (3) Hyponatremia: (4) COVID-19: (5) S/P cervical spinal fusion: (6) Neck pain on right side: Plan -Would consider starting escitalopram 5mg qd once her sodium normalizes. Once started would recheck Na+ in 1-2 weeks to ensure it remains stable with SSRI add ition. After 2 weeks can increase escitalopram to 10mg qd. -Psych liason to look into any potential options for outpatient therapy, if available, and provide resource booklet including local support groups -If escitalopram is ineffective would consider trial of mirtazapine starting at 7.5 mg qhs, monitor Na+ -Discussed recommendation to remove guns from home given depression which she agrees to ask friend to do Risk Factors Assessment Do You Have Access To A Gun?: Yes (but willing to have friend remove) Telehealth Telehealth Options: Telephone only For the duration of the visit, provider was performing the assessment from: The same facility as the patient After establishing a telemedicine visit, patient was: Patient was verified with two unique identifiers, Patient/authorized rep acknowledged consent and understanding and Gave permission to continue telehealth session Total Time Spent (minutes): 20 Psych History Identifying Data 71 yo woman who lives in [place] with a history of depression admitted medically for neck pain and found to be COVID+. Psychiatry consulted for recommendations regarding medications for depression. Chief Complaint "Yes that's really it, I'm very lonely". History of Present Illness Cheyanne and I met over the phone via telemedicine as she is currently in respiratory isolation due to being COVID+. She reports worsening depression and anxiety over the last year due to loneliness and social isolation worsening by impact from COVID. She cannot recall any prior psychiatric medication trials. She denies SI. PHQ-9 score of 14 with most prominent symptoms of anhedonia, low mood, fatigue, and poor appetite. Q9 was 0. She notes that her daughter responded well to escitalopram and is interested in trying a medication to help with her mood. She would also be interested in outpatient therapy or support groups. She has some symptoms from COVId including MIRELES, decreased appetite and difficulty with sleep. She feels her sleep is usually ok, and was fine before COVID. Further collateral per psych liason note from 09/21/21: "Pt reports that her in 2016, and she had a bout of depression then. That [place] [facility] [place] [facility] in her [place] after his passing. Her depression did end up going away on it's own. At this time she did have some passive suicidal thoughts of thinking she was better off . Pt denies ever having a plan. She has currently been depressed and anxious for at least a year. pt feels the main reason is that she is tired of being alone. Pt denies any current SI thoughts or plans. Denies ever having thoughts or urges to self-harm. Pt lives on her own. She has two adult children one lives in [place] and the other lives in [place]. pt had surgery on July 29, which her children came to stay with her. One leaving to return home on the August 16, and the other on September 16. Prior to this pt didn't have as much contact with her children as she would have liked. Pt feels them leaving her, and her returning to living on her own again and made her depression worse. When asked if she has a support system pt stated that a few people call and check in on her weekly. Pt reports no prior inpt or outpt psychiatric treatment, but per chart pt has an allergy to Sertraline. Pt's daughter was diagnosed with depression and was on lexapro at one point which was helpful for her. Pt's [id number] committed suicide in 1997, with a gun. Pt's brother committed suicide in 2007, with a gun. pt reports having "a couple guns" in her home, but not thinking she has any ammo. Pt was agreeable to start thinking about who could secure those guns for her. pt denies any trauma or any significant events that had happened in her childhood. Denies any history of or current legals charges. Denies any current or past substance or alcohol abuse. Reports she may have a drink on new years, but otherwise doesn't really drink. Pt reports having recently lost weight due to decreased appetite, even prior to post surgery diet of liquids. 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." Past Psychiatric History Previous Psych History: see HPI Outpatient Services: none Previous Psych Admissions: none Do You Have Access To A Gun?: Yes (but willing to have friend remove) History of Previous Suicide Attempt: No Past Medication Trials: possibly sertraline per chart allergies, she cannot recall trying this Allergies Allergy/AdvReac Type Severity Reaction Status Date / Time amoxicillin [From Augmentin] Allergy Severe Unknown Verified 09/19/21 21:41 clavulanic acid Allergy Severe Unknown Verified 09/19/21 21:41 [From Augmentin] niacin Allergy Mild "real Verified 09/19/21 21:41 flushed and passed out" sertraline AdvReac Mild stomach Verified 09/19/21 21:41 burning Home Medications Medication Instructions Recorded Confirmed Type metformin 500 mg tablet 1,000 mg PO BID 90 days #360 tabs 04/08/20 09/19/21 Rx aspirin 81 mg tablet,delayed 81 mg PO DAILY 08/07/20 09/19/21 History release blood sugar diagnostic (OneTouch #10 ea 08/07/20 09/19/21 History Verio test strips) levothyroxine 50 mcg tablet 75 mcg PO .COMPLEX #135 tabs 12/09/20 09/19/21 Rx lisinopril 40 mg tablet 40 mg PO QAM #90 tabs 06/04/21 09/19/21 Rx azithromycin 250 mg tablet See Rx Instructions PO .COMPLEX #6 09/17/21 09/19/21 Rx tabs methylprednisolone 4 mg tablets in See Rx Instructions PO DAILY 6 09/17/21 09/19/21 Rx a dose pack (Medrol (Flavio)) days #21 ea Family History daughter with anxiety/depression who responded well to escitalopram Substance Abuse History denies Personal History Living Arrangements: Home Highest Grade Completed: High School Graduate Employment Status: Retired Marital Status: Beliefs That Will Affect Care: None Patient History Medical History Depression Diabetes mellitus, type 2 Hyperlipidemia Hypertension Hypothyroidism Osteoarthritis Statin myopathy Tubular adenoma Surgical History History of colonoscopy with polypectomy History of nasal septoplasty History of shoulder surgery right--bone spur removal History of total abdominal hysterectomy and bilateral salpingo-oophorectomy History of wisdom tooth extraction Family History Mother T2DM (type 2 diabetes mellitus) Hypertension Sister T2DM (type 2 diabetes mellitus) Coronary heart disease Heart disease Breast cancer Father Family history of diabetes mellitus Coronary heart disease Stroke Heart disease T2DM (type 2 diabetes mellitus) Sister T2DM (type 2 diabetes mellitus) Sister T2DM (type 2 diabetes mellitus) Other No family history of adverse response to anesthesia No family history of bleeding disorder Denies family history of Ovarian cancer Prostate cancer Hearing loss Allergies Myocardial infarction Lung cancer Colorectal cancer Asthma Social History Smoking Status: Never smoker Second Hand Exposure: No (father smoked cigars); Hx Alcohol Use: Yes Alcohol type: hard liquor Alcohol Intake Frequency: Monthly or Less Alcohol Intake Frequency Comment: social Hx Substance Use: No Preferred Language: Icelandic Communication Ability: Effective Visual Impairment: Limited Hearing Ability: Normal Tool Inspector Required: No Beliefs That Will Affect Care: None marital status: / Current Living Situation: Alone current occupational status: retired How many Children do You have: 2 Other Information That Helps Us Care for You: No Feels Safe at Home: No Is there a partner from a previous relationship who is making you feel unsafe now?: No Any Concerns about Your Family Situation: No Would You Like to Speak to Someone About Your Situation: No Safety Concerns: Feels Safe At This Time Childhood Exposure to Second-Hand Smoke: Yes (father smoked cigars ) caffeine: Yes (drinks soda ) Dental Care, Regularly: Yes Physical Activity Frequency: 3-4 Times per Week Seatbelt Use: always Sunscreen Use: No Assistive Devices: None Physical Exam Psychiatric: Orientation: alert and oriented x 3 Speech: normal rate/rhythm/volume of speech Mood: + depressed mood and + anxious mood Thought Process: linear/logical thought process Thought Content: reality based without delusions Suicidal Thoughts: denies suicidal thoughts Homicidal Thoughts: denies homicidal thoughts Hallucinations: no auditory hallucinations and no visual hallucinations Cognition: recent memory grossly intact, remote memory grossly intact, attention grossly intact and language grossly intact Estimated Intelligence: consistent with education level Insight: good insight Judgement: + fair judgement Vital Signs (Past 24 Hours): Last Vital Signs Temp 36.8 C 09/22/21 12:17 Pulse 56 L 09/22/21 12:17 Resp 16 09/22/21 12:17 BP 135/72 09/22/21 12:17 Pulse Ox 98 09/22/21 12:17 O2 Del Method 09/22/21 12:17 Review of Systems All systems reviewed & are unremarkable except as noted in HPI & below Results & Data (PSY) Laboratory Results low Na+, QTc normal on last EKG 05/29/2021 Medications Administered Acetaminophen (Acetaminophen 500 Mg Tab) 1,000 mg PO TID GORAN Stop: 10/20/21 13:59 Last Admin: 09/22/21 08:49 Dose: 1,000 mg Documented By: Admin: 09/21/21 21:30 Dose: 1,000 mg Documented By: Admin: 09/21/21 15:27 Dose: 1,000 mg Documented By: Admin: 09/21/21 08:53 Dose: 1,000 mg Documented By: Admin: 09/20/21 21:04 Dose: 1,000 mg Documented By: Admin: 09/20/21 14:21 Dose: 1,000 mg Documented By: [id number] Artificial Tears (Artificial Tears) 2 drops OP Q1H PRN PRN Reason: dry eye Stop: 10/21/21 20:33 Last Admin: 09/22/21 05:45 Dose: 2 drops Documented By: Admin: 09/21/21 22:00 Dose: 2 drops Documented By: CAL Aspirin (Aspirin 81 Mg Ectab) 81 mg PO DAILY GORAN Stop: 10/20/21 08:59 Last Admin: 09/22/21 08:50 Dose: 81 mg Documented By: Admin: 09/21/21 08:53 Dose: 81 mg Documented By: Admin: 09/20/21 07:45 Dose: 81 mg Documented By: [id number] Buspirone HCl (Buspirone 5 Mg Tab) 5 mg PO BID GORAN Stop: 10/21/21 09:59 Last Admin: 09/22/21 10:13 Dose: 5 mg Documented By: Admin: 09/21/21 21:35 Dose: 5 mg Documented By: Admin: 09/21/21 12:03 Dose: 5 mg Documented By: LEIF Dexamethasone 4 mg/ Syringe 1 mls @ 1 mls/min IV Q12H GORAN Stop: 10/20/21 16:29 Last Admin: 09/22/21 04:36 Dose: 1 mls/min Documented By: Admin: 09/21/21 17:14 Dose: 1 mls/min Documented By: Admin: 09/21/21 05:00 Dose: 1 mls/min Documented By: Admin: 09/20/21 17:34 Dose: 1 mls/min Documented By: [id number] Insulin Aspart (Insulin Aspart Per Unit) 0 units SC ACHS [facility] Stop: 10/20/21 07:29 Last Admin: 09/22/21 12:29 Dose: 4 units Documented By: CEE Co-signed By: WILLIE Admin: 09/22/21 08:38 Dose: 4 units Documented By: CEE Co-signed By: JORGE A Admin: 09/21/21 21:05 Dose: 1 units Documented By: CAL Co-signed By: JOHNY Admin: 09/21/21 17:03 Dose: Not Given Documented By: Admin: 09/21/21 12:33 Dose: Not Given Documented By: Admin: 09/21/21 08:11 Dose: Not Given Documented By: Admin: 09/20/21 21:25 Dose: Not Given Documented By: Co-signed By: KAL Admin: 09/20/21 16:33 Dose: Not Given Documented By: [id number] Admin: 09/20/21 12:39 Dose: Not Given Documented By: [id number] Admin: 09/20/21 08:58 Dose: 2 units Documented By: [id number] Co-signed By: NILA Levothyroxine Sodium (Levothyroxine Sodium 75 Mcg Tablet) 75 mcg PO [id number] [facility] Stop: 10/20/21 06:29 Last Admin: 09/22/21 05:46 Dose: 75 mcg Documented By: Admin: 09/20/21 05:52 Dose: 75 mcg Documented By: RHIANNON Lidocaine (Lidocaine 5% 1 Patch) 2 patch TD QAM [facility] Stop: 10/20/21 16:29 Last Admin: 09/22/21 08:51 Dose: 2 patch Documented By: Admin: 09/21/21 08:54 Dose: 2 patch Documented By: Admin: 09/20/21 17:34 Dose: 2 patch Documented By: [id number] Lisinopril (Lisinopril 40 Mg Tab) 40 mg PO QAM [facility] Stop: 10/20/21 08:59 Last Admin: 09/22/21 08:51 Dose: 40 mg Documented By: Admin: 09/21/21 08:53 Dose: 40 mg Documented By: Admin: 09/20/21 07:45 Dose: 40 mg Documented By: [id number] Miscellaneous (Remove Lidoderm Patch) 1 each N/A DAILY@2100 [facility] Stop: 10/20/21 20:59 Last Admin: 09/21/21 21:31 Dose: 1 each Documented By: Admin: 09/20/21 21:03 Dose: 1 each Documented By: Ondansetron HCl (Ondansetron Inj 2 Mg/Ml 2 Ml Vial) 4 mg IV Q6H PRN PRN Reason: Nausea Stop: 10/20/21 01:34 Last Admin: 09/20/21 16:16 Dose: 4 mg Documented By: [id number] Admin: 09/20/21 14:26 Dose: 4 mg Documented By: [id number] Oxycodone HCl (Oxycodone Hcl Ir 5 Mg Tab (Immediate Release)) 5 mg PO Q6H PRN PRN Reason: Pain Stop: 10/04/21 11:56 Last Admin: 09/20/21 12:38 Dose: 5 mg Documented By: [id number] Sodium Chloride (Sodium Chloride 1 Gm Tablet) 2 gm PO [id number] [facility] Stop: 10/22/21 08:25 Last Admin: 09/22/21 08:49 Dose: 2 gm Documented By: CEE Coding Level of Care Code 74962 Inpt Consult Level 3 Diagnoses MDD (major depressive disorder), recurrent episode, moderate F33.1 Anxiety F41.9 Hyponatremia E87.1 COVID-19 U07.1 S/P cervical spinal fusion Z98.1 Neck pain on right side M54.2
[2021-09-22 15:42] LABS: BUN Creatinine Ratio 15.9 (10-20); Calcium 8.2 mg/dl (8.5-10.1); Creatinine Clr Calc Pharmacy 51.4 ml/min; Est GFR (African American) 77.2 ml/min; Est GFR (Non-African American) 66.6 ml/min; Potassium 4.1 mmol/L (3.5-5.1)
[2021-09-22] MEDS ORDERED: SODIUM CHLORIDE 3 % 100 ML IV ONE (17:07)
--- NOTE | 2021-09-22 20:22 | Hospitalist Progress Note ---
Date of Service September 22, 2021 Assessment & Plan (1) Radiculopathy, cervicothoracic region: Plan: 07/29/21 - cervical spine discectomy/fusion at C5-6 at [facility]. C5-C6 level intact on MRI of c-spine thus her surgical site is stable and not contributing to current symptoms. Does have large C3-C4 disc herniation but neural compromise is on the LEFT which doesn't necessarily explain the RIGHT sided pain (although her pain is in the C4 dermatomal level on the right on exam). CT of soft tissue of neck was negative. Tramadol, tylenol, oxycodone, and morphine were all ineffective at relieving her pain. Pain continues to improve with IV dexamethasone 4mg BID. Spoke with ortho-spine today -- although the C3-C4 disc herniation is causing C4 nerve impingement on the left, there may be enough inflammation surrounding this herniation to cause right-sided symptoms as well. Of note - MRI c-spine (scanned document from 2020) showed the C3-C4 disc herniation but it was small at that time. Of note CTAs head/neck - normal - NO dissection, stroke, aneurysm, etc. Following discharge would d/c on dexamethasone taper, and have her f/u with her ortho specialist in [place] for the worsening C3-C4 disease. (2) Acute hyponatremia: Plan: Sodium 127 upon admission. With IV fluids there was no correction of her Na level. 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 no response to salt tabs with fluid restriction. consulted Dr Kay from nephrology - hypertonic saline advised; has received 3% NaCl several times now. Na level slowly improving. She will need additional work-up (occult malignancy, etc) to ensure nothing else is driving her SIADH as an outpatient. Repeat BMP in am; repeat Na level tonight. (3) COVID-19: Plan: IMPROVING. Symptoms started about 7 days ago. Symptoms - hoarse voice, sinus congestion, headache, fatigue, poor appetite. No evidence of pneumonia. O2 sats wnl. CXR wnl. No specific Rx needed other than supportive care. (4) S/P cervical spinal fusion: Plan: See above #1 Performed [facility] late June 2021 C5-C6 (5) Hypothyroidism: Plan: Continue levothyroxine 50 mcg daily TSH wnl (6) Hypertension: Plan: Continue lisinopril 40 mg every morning and aspirin 81 mg daily Elevated BPs likely due to pain +/- steroids (7) Diabetes mellitus, type 2: Plan: Hold metformin. Hemoglobin A1c about 7% Cont novolog SSI (8) Depression: Plan: given her Na issues this would be a poor time to introduce medications however, pt requesting psych eval - consult placed and completed; appreciate their consult for anxiety - buspar 5mg BID counseling advised - psych can help her secure one for after discharge Plan updated pt's daughter by phone this evening home tomorrow if Na level has normalized Admission and Anticipated Discharge Date Admission Date: September 20, 2021 Subjective headache improved right neck pain better appetite finally improved today overall feels better she was thankful for her opportunity to speak with psych tele stable overnight no new events Review of Systems Review of Systems: gen - no fevers, no chills, appetite/weakness improved cv - no chest pain pulm - no cough, no dyspnea GI - no further episodes of nausea/emesis; no abd pain Physical Exam Physical Exam: gen - looks much better today; not as tearful neck - no tenderness to palpation over the R paraspinal cervical region today; range of motion of neck much improved mouth - MMM face - no tenderness over frontal or maxillary sinuses heart - RRR, s1 s2, no murmur lungs - CTA b/l abd - soft NT ND BS+ ext - no edema, pulses 2+ b/l psych - oriented x 3, awake, alert neuro - strength b/l arms 5/5 Results & Data Results & Data ([facility]) Vital Signs (Past 12 Hours) Vital Signs Temp Pulse Resp BP Pulse Ox O2 Del Method 09/22/21 19:37 37.2 C 60 17 166/75 H 98 Room Air 09/22/21 12:17 36.8 C 56 L 16 135/72 98 Room Air Laboratory Results Laboratory Results - last 24 hr 09/21/21 09/21/21 09/22/21 20:24 22:46 07:27 Sodium 128 L 129 L Potassium 4.5 Chloride 99 Carbon Dioxide 24 Anion Gap 6 BUN 13 Creatinine 0.76 Est Cr Clr Drug Dosing 59.5 Est GFR ( Amer) 92.1 Est GFR (Non-Af Amer) 79.5 BUN/Creatinine Ratio 17.1 Glucose 115 H POC Glucose 165 H Calcium 8.2 L 09/22/21 09/22/21 09/22/21 07:39 11:50 14:02 Sodium Cancelled Potassium Cancelled Chloride Cancelled Carbon Dioxide Cancelled Anion Gap Cancelled BUN Cancelled Creatinine Cancelled Est Cr Clr Drug Dosing Cancelled Est GFR ( Amer) Cancelled Est GFR (Non-Af Amer) Cancelled BUN/Creatinine Ratio Cancelled Glucose Cancelled POC Glucose 133 H 177 H Calcium Cancelled 09/22/21 09/22/21 09/22/21 14:52 16:46 20:19 Sodium 128 L Potassium 4.1 Chloride 98 Carbon Dioxide 25 Anion Gap 5 BUN 14 Creatinine 0.88 Est Cr Clr Drug Dosing 51.4 Est GFR ( Amer) 77.2 Est GFR (Non-Af Amer) 66.6 BUN/Creatinine Ratio 15.9 Glucose 178 H POC Glucose 137 H 129 H Calcium 8.2 L PG Care Time/CCT Total # of Minutes Spent Total Time Spent with Patient: Total time spent is greater than 50% in coordination of care (as documented) at patient's floor/unit and/or counseling patient: Coding Level of Care Code 31649 Subseq Hosp Care Lvl 2 Diagnoses Radiculopathy, cervicothoracic region M54.13 Acute hyponatremia E87.1 COVID-19 U07.1 S/P cervical spinal fusion Z98.1 Hypothyroidism E03.9 Hypertension I10 Diabetes mellitus, type 2 E11.9 Depression F32.A
[2021-09-23] MEDS: dexAMETHasone 4 MG in SYRINGE 0 ML IV SCH ×2 (04:08→17:25)
[2021-09-23] MEDS: LEVOTHYROXINE SODIUM 75 MCG TABLET PO SCH (06:21)
[2021-09-23] MEDS: SODIUM CHLORIDE 1 GM TABLET PO SCH ×2 (08:21→15:01)
[2021-09-23] MEDS: busPIRone 5 MG TAB PO SCH ×2 (08:21→21:00)
[2021-09-23] MEDS: lisinopril 40 MG TAB PO SCH (08:21)
[2021-09-23] MEDS: ASPIRIN 81 MG ECTAB PO SCH (08:21)
[2021-09-23] MEDS: ACETAMINOPHEN 500 MG TAB PO SCH ×3 (08:22→20:58)
[2021-09-23] MEDS: LIDOCAINE 5% 1 PATCH TD SCH (08:22)
[2021-09-23] MEDS: INSULIN ASPART PER UNIT SC SCH ×4 (08:32→21:08)
[2021-09-23 09:05] LABS: Albumin Level 3.7 gm/dl (3.4-5.0); BUN Creatinine Ratio 17.3 (10-20); Creatinine Clr Calc Pharmacy 60.3 ml/min; Est GFR (African American) 93.6 ml/min; Est GFR (Non-African American) 80.8 ml/min; Phosphorus 1.9 mg/dl (2.5-4.9); Potassium 4.2 mmol/L (3.5-5.1)
--- NOTE | 2021-09-23 09:59 | Nephrology Progress Note ---
Date of Service September 23, 2021 Assessment & Plan (1) Hyponatremia: Plan: SIADH, etiology unclear. Improved appropriately with IVF. With fluid restriction and oral NaCl, sodium up to 135 mmol/L yesterday evening. Slightly lower this AM. Repeat Uosm this AM. Repeat serum sodium this afternoon. If improvement noted with current therapy, I would consider Cheyanne stable for discharge with close outpatient follow up from a nephrology perspective. Maintain free water restriction, 1.2 L daily. (2) COVID-19: Plan: Outpatient follow up in the clinic to be arranged accordingly. (3) Hypothyroidism: Plan: Clinically euthymic. TSH acceptable. (4) Hypertension: Plan: Remains euvolemic. BP acceptable. Admission and Anticipated Discharge Date Admission Date: September 20, 2021 Subjective No acute events overnight. Cheyanne feels well this AM. Headache and shoulder pain have improved. Appetite is good. She hopes to be discharged home soon. Review of Systems Review of Systems: All systems reviewed & are unremarkable except as noted in HPI & below Physical Exam Constitutional: well developed; no acute distress Eyes: no scleral abnormality and no corneal abnormality ENMT: Mouth: no oral mucosal abnormality and oral mucous membranes not dry Neck: normal visual inspection and trachea midline Respiratory: normal respiratory effort Auscultation: lungs clear to auscultation bilaterally Cardiovascular: Rate/Rhythm: regular rate Heart Sounds: normal S1 and normal S2 Extremities: no edema Musculoskeletal: Extremities: no cyanosis and no clubbing Skin: normal turgor; no lesions Neurologic: Motor/Sensory: no tremor and no asterixis Psychiatric: Orientation: alert and oriented x 3 Results & Data ([facility]) Vital Signs (Past 12 Hours) Vital Signs Temp Pulse Pulse Resp BP Pulse Ox O2 Del Method 09/23/21 08:18 36.5 C 62 18 138/64 96 Room Air 09/23/21 07:00 56 L 09/23/21 04:08 36.8 C 56 L 17 137/76 97 Room Air 09/23/21 02:14 53 L 09/22/21 23:34 37.1 C 55 L 18 117/66 96 Room Air Laboratory Results Laboratory Results - last 24 hr 09/22/21 09/22/21 09/22/21 11:50 14:02 14:52 Sodium Cancelled 128 L Potassium Cancelled 4.1 Chloride Cancelled 98 Carbon Dioxide Cancelled 25 Anion Gap Cancelled 5 BUN Cancelled 14 Creatinine Cancelled 0.88 Est Cr Clr Drug Dosing Cancelled 51.4 Est GFR ( Amer) Cancelled 77.2 Est GFR (Non-Af Amer) Cancelled 66.6 BUN/Creatinine Ratio Cancelled 15.9 Glucose Cancelled 178 H POC Glucose 177 H Calcium Cancelled 8.2 L Phosphorus Albumin 09/22/21 09/22/21 09/22/21 16:46 20:19 20:26 Sodium 135 L Potassium Chloride Carbon Dioxide Anion Gap BUN Creatinine Est Cr Clr Drug Dosing Est GFR ( Amer) Est GFR (Non-Af Amer) BUN/Creatinine Ratio Glucose POC Glucose 137 H 129 H Calcium Phosphorus Albumin 09/23/21 09/23/21 07:50 08:15 Sodium 132 L Potassium 4.2 Chloride 103 Carbon Dioxide 24 Anion Gap 5 BUN 13 Creatinine 0.75 Est Cr Clr Drug Dosing 60.3 Est GFR ( Amer) 93.6 Est GFR (Non-Af Amer) 80.8 BUN/Creatinine Ratio 17.3 Glucose 130 H POC Glucose 155 H Calcium 8.0 L Phosphorus 1.9 L Albumin 3.7 PG Care Time/CCT Total # of Minutes Spent Total Time Spent with Patient: Total time spent is greater than 50% in coordination of care (as documented) at patient's floor/unit and/or counseling patient: Coding Level of Care Code 53870 Subseq Hosp Care Lvl 3 Diagnoses Hyponatremia E87.1 COVID-19 U07.1 Hypothyroidism E03.9 Hypertension I10
[2021-09-23] MEDS ORDERED: FUROSEMIDE 20 MG TAB PO ONE (16:40)
--- NOTE | 2021-09-23 16:42 | Hospitalist Progress Note ---
Date of Service September 23, 2021 Assessment & Plan (1) Radiculopathy, cervicothoracic region: Plan: 07/29/21 - cervical spine discectomy/fusion at C5-6 at [facility]. C5-C6 level intact on MRI of c-spine thus her surgical site is stable and not contributing to current symptoms. Does have large C3-C4 disc herniation but neural compromise is on the LEFT which doesn't necessarily explain the RIGHT sided pain (although her pain is in the C4 dermatomal level on the right on exam). CT of soft tissue of neck was negative. Tramadol, tylenol, oxycodone, and morphine were all ineffective at relieving her pain. Pain now significantly improved with IV dexamethasone 4mg BID. Previous hospitalist spoke with ortho-spine -- although the C3-C4 disc herniation is causing C4 nerve impingement on the left, there may be enough inflammation surrounding this herniation to cause right-sided symptoms as well. Of note - MRI c-spine (scanned document from 2020) showed the C3-C4 disc herniation but it was small at that time. Of note CTAs head/neck - normal - NO dissection, stroke, aneurysm, etc. Following discharge would d/c on dexamethasone taper, and have her f/u with her ortho specialist in [place] for the worsening C3-C4 disease. (2) Acute hyponatremia: Plan: Sodium 127 upon admission. With IV fluids there was no correction of her Na level. 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 Could be SIADH secondary to pain,tramadol use less likely as was short term, but also COVID could cause SIADH. Also had poor solute intake prior to arrival due to headaches, pain, and perhaps COVID no response to salt tabs with fluid restriction initially. consulted Dr Kay from nephrology - hypertonic saline advised; has received 3% NaCl several times now. Na+ was improving, but now today trended back down to 131 -start lasix 20mg po x 1 now continue NaCl 2000mg po bid -continue fluid restriction -She will need additional work-up (occult malignancy, etc) to ensure nothing else is driving her SIADH as an outpatient. -Repeat BMP in am,, f/u Urine Osm (3) COVID-19: Plan: IMPROVING. Symptoms started about 7 days prior Symptoms - hoarse voice, sinus congestion, headache, fatigue, poor appetite. No evidence of pneumonia. O2 sats wnl. CXR wnl. No specific Rx needed other than supportive care. (4) S/P cervical spinal fusion: Plan: Performed [facility] late June 2021 C5-C6 (5) Hypothyroidism: Plan: Continue levothyroxine 50 mcg daily TSH wnl (6) Hypertension: Plan: Continue lisinopril 40 mg every morning and aspirin 81 mg daily BPs now controlled (7) Diabetes mellitus, type 2: Plan: Hold metformin. Hemoglobin A1c about 7% Cont novolog SSI (8) Depression: Plan: given her Na issues this would be a poor time to introduce medications however, pt requesting psych eval - consult placed and completed; appreciate their consult-recommend counseling, Lexapro 5mg daily with close monitoring of Na+. But would not start until sodium has normalized for anxiety - buspar 5mg BID counseling advised - psych can help her secure one for after discharge Plan updated pt's niece at the bedside DVT proph-SCDs, add Lovenox SQ Dispo-continued stay but if Na+ improving by tomorrow, can discharge to home Admission and Anticipated Discharge Date Admission Date: September 20, 2021 Subjective Pt feeling better. Feels appetite is improving, only very minimal twinge of pain on right side of head at times (compared to bad HAs previously), no CP, cough, or SOB. No abd pain. Is constipated. Pain in right shoulder is much improved. I discussed her care with Nephrology. Tele with NSR, rates 40-60s Review of Systems Review of Systems: All systems reviewed & are unremarkable except as noted in HPI & below Physical Exam Constitutional: WD/WN, vitals as above Eyes: + anicteric sclerae ENMT: external ear and nose normal, oropharynx normal Neck: trachea midline, no thyromegaly Respiratory: normal respiratory effort, lungs clear to auscultation Cardiovascular: RRR, no murmur, no edema Gastrointestinal (Abdomen): normal bowel sounds, soft, nontender, no hepatosplenomegaly Musculoskeletal: Extremities: extremities normal to inspection; no cyanosis and no clubbing Skin: no rashes, warm and dry Neurologic: moves all extremities and awake; no focal motor deficits Psychiatric: A+Ox3, euthymic affect Results & Data Results & Data ([facility]) Vital Signs (Past 12 Hours) Vital Signs Temp Pulse Pulse Resp BP Pulse Ox O2 Del Method 09/23/21 15:00 56 L 09/23/21 11:37 36.9 C 55 L 18 135/72 99 Room Air 09/23/21 08:00 Room Air 09/23/21 08:18 36.5 C 62 18 138/64 96 Room Air 09/23/21 07:00 56 L Laboratory Results 09/23/21 09/23/21 09/23/21 Range/Units 16:26 14:30 11:35 Sodium 131 L (136-145) mmol/L Potassium (3.5-5.1) mmol/L Chloride (98-107) mmol/L Carbon Dioxide (21-32) mmol/L Anion Gap (3-11) BUN (6-23) mg/dl Creatinine (0.6-1.2) mg/dl Est Cr Clr Drug Dosing ml/min Est GFR ( Amer) ml/min Est GFR (Non-Af Amer) ml/min BUN/Creatinine Ratio (10-20) Glucose (70-99(Fasting)) mg/dl POC Glucose 191 H 241 H (70-99) mg/dl Calcium (8.5-10.1) mg/dl Phosphorus (2.5-4.9) mg/dl Albumin (3.4-5.0) gm/dl 09/23/21 09/23/21 09/23/21 Range/Units 11:35 08:15 07:50 Sodium 132 L (136-145) mmol/L Potassium 4.2 (3.5-5.1) mmol/L Chloride 103 (98-107) mmol/L Carbon Dioxide 24 (21-32) mmol/L Anion Gap 5 (3-11) BUN 13 (6-23) mg/dl Creatinine 0.75 (0.6-1.2) mg/dl Est Cr Clr Drug Dosing 60.3 ml/min Est GFR ( Amer) 93.6 ml/min Est GFR (Non-Af Amer) 80.8 ml/min BUN/Creatinine Ratio 17.3 (10-20) Glucose 130 H (70-99(Fasting)) mg/dl POC Glucose 232 H 155 H (70-99) mg/dl Calcium 8.0 L (8.5-10.1) mg/dl Phosphorus 1.9 L (2.5-4.9) mg/dl Albumin 3.7 (3.4-5.0) gm/dl 09/22/21 09/22/21 09/22/21 Range/Units 20:26 20:19 16:46 Sodium 135 L (136-145) mmol/L Potassium (3.5-5.1) mmol/L Chloride (98-107) mmol/L Carbon Dioxide (21-32) mmol/L Anion Gap (3-11) BUN (6-23) mg/dl Creatinine (0.6-1.2) mg/dl Est Cr Clr Drug Dosing ml/min Est GFR ( Amer) ml/min Est GFR (Non-Af Amer) ml/min BUN/Creatinine Ratio (10-20) Glucose (70-99(Fasting)) mg/dl POC Glucose 129 H 137 H (70-99) mg/dl Calcium (8.5-10.1) mg/dl Phosphorus (2.5-4.9) mg/dl Albumin (3.4-5.0) gm/dl PG Care Time/CCT Total # of Minutes Spent Total Time Spent with Patient: Total time spent is greater than 50% in coordination of care (as documented) at patient's floor/unit and/or counseling patient: Coding Level of Care Code 39309 Subseq Hosp Care Lvl 3 Diagnoses Radiculopathy, cervicothoracic region M54.13 Acute hyponatremia E87.1 COVID-19 U07.1 S/P cervical spinal fusion Z98.1 Hypothyroidism E03.9 Hypertension I10 Diabetes mellitus, type 2 E11.9 Depression F32.A
[2021-09-23] MEDS: DOCUSATE SODIUM/SENNA 50/8.6MG TAB PO SCH (17:23)
[2021-09-23] MEDS: POT PHOSPHATE MONOBASIC W/ SOD TAB PO SCH ×2 (17:34→20:59)
[2021-09-23] MEDS: ENOXAPARIN INJ 40 MG/0.4 ML SYR SQ SCH (17:34)
[2021-09-23] MEDS ORDERED: SODIUM CHLORIDE 1 GM TABLET PO STA (17:59)
[2021-09-24] MEDS: dexAMETHasone 4 MG in SYRINGE 0 ML IV SCH (05:00)
[2021-09-24] MEDS: SODIUM CHLORIDE 1 GM TABLET PO SCH ×2 (05:50→14:39)
[2021-09-24] MEDS: LEVOTHYROXINE SODIUM 75 MCG TABLET PO SCH (05:51)
[2021-09-24] MEDS: DOCUSATE SODIUM/SENNA 50/8.6MG TAB PO SCH (08:39)
[2021-09-24] MEDS: busPIRone 5 MG TAB PO SCH (08:42)
[2021-09-24] MEDS: LIDOCAINE 5% 1 PATCH TD SCH (08:42)
[2021-09-24] MEDS: POT PHOSPHATE MONOBASIC W/ SOD TAB PO SCH (08:43)
[2021-09-24] MEDS: ASPIRIN 81 MG ECTAB PO SCH (08:43)
[2021-09-24] MEDS: lisinopril 40 MG TAB PO SCH (08:43)
[2021-09-24] MEDS: ACETAMINOPHEN 500 MG TAB PO SCH ×2 (08:44→14:42)
--- NOTE | 2021-09-24 09:58 | Nephrology Progress Note ---
Date of Service September 24, 2021 Assessment & Plan (1) Hyponatremia: Plan: SIADH, etiology unclear. AM labs pending. Continue NaCl 2 grams BID. Furosemide 20 mg provided yesterday. Continue 20 mg daily, if sodium stable/improved this AM. Maintain free water restriction, 1.2 L daily. (2) COVID-19: Plan: Outpatient follow up in the clinic to be arranged accordingly. (3) Hypothyroidism: Plan: Clinically euthymic. TSH acceptable. (4) Hypertension: Plan: Remains euvolemic. BP acceptable. Admission and Anticipated Discharge Date Admission Date: September 20, 2021 Subjective No acute events overnight. No complaints this AM. Review of Systems Review of Systems: All systems reviewed & are unremarkable except as noted in HPI & below Physical Exam Constitutional: well developed; no acute distress Eyes: no scleral abnormality and no corneal abnormality Neck: normal visual inspection and trachea midline Respiratory: normal respiratory effort Auscultation: lungs clear to auscultation bilaterally Cardiovascular: Rate/Rhythm: regular rate Heart Sounds: normal S1 and normal S2 Extremities: no edema Musculoskeletal: Extremities: no cyanosis and no clubbing Skin: normal turgor; no lesions Neurologic: Motor/Sensory: no tremor and no asterixis Psychiatric: Orientation: alert and oriented x 3 Results & Data ([facility]) Vital Signs (Past 12 Hours) Vital Signs Temp Pulse Pulse Resp BP Pulse Ox O2 Del Method 09/24/21 07:57 36.7 C 63 14 150/74 H 98 Room Air 09/23/21 22:22 55 L 09/24/21 03:38 36.9 C 55 L 18 153/70 H 99 Room Air 09/23/21 23:22 36.6 C 55 L 16 179/69 H 99 Room Air Laboratory Results Laboratory Results - last 24 hr 09/23/21 09/23/21 09/23/21 11:35 11:35 14:30 Sodium 131 L Potassium Chloride Carbon Dioxide Anion Gap BUN Creatinine Est Cr Clr Drug Dosing Est GFR ( Amer) Est GFR (Non-Af Amer) BUN/Creatinine Ratio Glucose POC Glucose 232 H 241 H Calcium Phosphorus Albumin Urine Osmolality 09/23/21 09/23/21 09/23/21 16:26 20:54 Unknown Sodium Potassium Chloride Carbon Dioxide Anion Gap BUN Creatinine Est Cr Clr Drug Dosing Est GFR ( Amer) Est GFR (Non-Af Amer) BUN/Creatinine Ratio Glucose POC Glucose 191 H 184 H Calcium Phosphorus Albumin Urine Osmolality 361 L 09/24/21 09/24/21 07:53 09:19 Sodium Pending Potassium Pending Chloride Pending Carbon Dioxide Pending Anion Gap Pending BUN Pending Creatinine Pending Est Cr Clr Drug Dosing Pending Est GFR ( Amer) Pending Est GFR (Non-Af Amer) Pending BUN/Creatinine Ratio Pending Glucose Pending POC Glucose 131 H Calcium Pending Phosphorus Pending Albumin Pending Urine Osmolality PG Care Time/CCT Total # of Minutes Spent Total Time Spent with Patient: Total time spent is greater than 50% in coordination of care (as documented) at patient's floor/unit and/or counseling patient: Coding Level of Care Code 10201 Subseq Hosp Care Lvl 3 Diagnoses Hyponatremia E87.1 COVID-19 U07.1 Hypothyroidism E03.9 Hypertension I10
[2021-09-24 10:09] LABS: Albumin Level 3.7 gm/dl (3.4-5.0); BUN Creatinine Ratio 14.3 (10-20); Calcium 8.6 mg/dl (8.5-10.1); Creatinine Clr Calc Pharmacy 49.7 ml/min; Est GFR (African American) 74.1 ml/min; Est GFR (Non-African American) 63.9 ml/min; Phosphorus 1.9 mg/dl (2.5-4.9); Potassium 3.9 mmol/L (3.5-5.1)
[2021-09-24] MEDS: INSULIN ASPART PER UNIT SC SCH ×3 (10:15→17:24)
[2021-09-24] MEDS ORDERED: POT PHOSPHATE MONOBASIC W/ SOD TAB PO SCH ×2 (10:30→13:00)
[2021-09-24] MEDS ORDERED: FUROSEMIDE 20 MG TAB PO SCH (10:45)
--- NOTE | 2021-09-24 15:18 | Discharge Summary ---
Date of Service September 24, 2021 Admission HPI Per Admitting Provider The patient is a 71-year-old female with a past medical history including depression, SNHL, C8 cervical radiculopathy, left SI joint pain, eustachian tube dysfunction, allergic fungal sinusitis, osteoarthritis, hypothyroidism, hypertension, hyperlipidemia, diabetes mellitus type 2 and status post cervical discectomy and C5-C6 fusion at [facility]. She presents with symptoms as noted above. She denies any change in activities that she is aware of that precipitated return to this discomfort. She had recently been seen by Dr. HARVEY, ENT, who placed her on methylprednisolone and a Z-Flavio for right earache and hoarseness. Discharge Exam Constitutional WD/WN, vitals as above Eyes + anicteric sclerae ENMT external ear and nose normal, oropharynx normal Neck trachea midline, no thyromegaly Respiratory normal respiratory effort, lungs clear to auscultation Cardiovascular RRR, no murmur, no edema Gastrointestinal (Abdomen) normal bowel sounds, soft, nontender, no hepatosplenomegaly Musculoskeletal Extremities: extremities normal to inspection; no cyanosis and no clubbing Skin no rashes, warm and dry Neurologic moves all extremities and awake; no focal motor deficits Psychiatric A+Ox3, euthymic affect Discharge Data Allergies Allergy/AdvReac Type Severity Reaction Status Date / Time amoxicillin [From Augmentin] Allergy Severe Unknown Verified 09/19/21 21:41 clavulanic acid Allergy Severe Unknown Verified 09/19/21 21:41 [From Augmentin] niacin Allergy Mild "real Verified 09/19/21 21:41 flushed and passed out" sertraline AdvReac Mild stomach Verified 09/19/21 21:41 burning Consultations 09/21/21 10:03 Consult Nephrology Routine 09/21/21 12:52 Consult Psychiatry Routine 09/24/21 15:10 Burn CD for patient Stat Ordered Studies 09/19/21 19:03 CT soft tissue neck w con Stat 09/19/21 22:06 MRI Cervical [MR cervical spine wo con] Stat 09/21/21 17:30 CT angio head wo/w Urgent CTA neck with con [CT angio neck with con] Urgent Hospital Course (1) Radiculopathy, cervicothoracic region: 07/29/21 - cervical spine discectomy/fusion at C5-6 at [facility]. C5-C6 level intact on MRI of c-spine thus her surgical site is stable and not contributing to current symptoms. Does have large C3-C4 disc herniation but neural compromise is on the LEFT which doesn't necessarily explain the RIGHT sided pain (although her pain is in the C4 dermatomal level on the right on exam). CT of soft tissue of neck was negative. Tramadol, tylenol, oxycodone, and morphine were all ineffective at relieving her pain. Pain now significantly improved with IV dexamethasone 4mg BID. Previous hospitalist spoke with ortho-spine -- although the C3-C4 disc herniation is causing C4 nerve impingement on the left, there may be enough inflammation surrounding this herniation to cause right-sided symptoms as well. Of note - MRI c-spine (scanned document from 2020) showed the C3-C4 disc herniation but it was small at that time. Of note CTAs head/neck - normal - NO dissection, stroke, aneurysm, etc. Following discharge would d/c on dexamethasone taper, and have her f/u with her ortho specialist in [place] for the worsening C3-C4 disease. (2) Acute hyponatremia: Sodium 127 upon admission. With IV fluids there was no correction of her Na level. 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 Could be SIADH secondary to pain,tramadol use less likely as was short term, but also COVID could cause SIADH. Also had poor solute intake prior to arrival due to headaches, pain, and perhaps COVID no response to salt tabs with fluid restriction initially. consulted Dr Kay from nephrology - hypertonic saline advised; has received 3% NaCl several times now. Na+ was improving, but now today trended back down to 131 -start lasix 20mg po x 1 now continue NaCl 2000mg po bid -continue fluid restriction -She will need additional work-up (occult malignancy, etc) to ensure nothing else is driving her SIADH as an outpatient. -Repeat BMP in am,, f/u Urine Osm (3) COVID-19: IMPROVING. Symptoms started about 7 days prior Symptoms - hoarse voice, sinus congestion, headache, fatigue, poor appetite. No evidence of pneumonia. O2 sats wnl. CXR wnl. No specific Rx needed other than supportive care. (4) S/P cervical spinal fusion: Performed [facility] late June 2021 C5-C6 (5) Hypothyroidism: Continue levothyroxine 50 mcg daily TSH wnl (6) Hypertension: Continue lisinopril 40 mg every morning and aspirin 81 mg daily BPs now controlled (7) Diabetes mellitus, type 2: Hold metformin. Hemoglobin A1c about 7% Cont novolog SSI (8) Depression: given her Na issues this would be a poor time to introduce medications however, pt requesting psych eval - consult placed and completed; appreciate their consult-recommend counseling, Lexapro 5mg daily with close monitoring of Na+. But would not start until sodium has normalized for anxiety - buspar 5mg BID counseling advised - psych can help her secure one for after discharge Plan updated pt's niece at the bedside DVT proph-SCDs, add Lovenox SQ Dispo-continued stay but if Na+ improving by tomorrow, can discharge to home Discharge Plan Discharge Items Patient Disposition: Home - Self-Care Reason For Visit: RT CERVICAL RADICULOPATHY, HYPONATREMIA Discharge Diagnosis: Right cervical radiculopathy, Hyponatremia secondary to SIADH, COVID-19 Condition on Discharge: Good Activity: Resume your previous activity Non-emergency contact: Primary Care Provider and Surgeon Call non-emergency contact if: you have any medication questions, your symptoms worsen, your pain is not controlled, your pain is worsening and your pain is concerning for you Follow-up/Referrals: Quentin Beck MD [Primary Care Provider] - (Follow up within 1-2 weeks) Johnny Kay DO [Physician] - (Follow up within 1-2 weeks) Diet: Carb Consistent or DM2 Fluids: 1200ml (5 cups) Ambulatory Orders: Basic Metabolic Panel (Routine) Timeframe: 5 Days Location: Determined by Patient Ordered By: Celeste Francois Addtl Attending Provider Instructions: Please continue to take the salt tablets and lasix and follow a 1200mL/day fluid restriction after discharge. You should have your blood work checked on Wednesday to check your sodium levels again and await for Dr. Kay or Dr. Beck's office to contact you with results. You may be able to stop the sodium tablets and lasix after your sodium returns to normal. For your herniated disc in your neck and right shoulder pain, please finish out the steroid taper, continue the lidocaine patches to the area, and follow up with your spine surgeon. Your MRI of the cervical spine was placed on a CD for you to take to the spine surgeon. You were started on Buspar for anxiety, but the Psychiatrist suggested you start an antidepressant called Lexapro, but your sodium level needs to normalize first before this could be started. Please follow up with your PCP for this. Also, it would be beneficial for you to see a therapist for counseling regarding your depression. Pending Studies at Discharge: No Stand-Alone Forms: My [facility], Smoking Cessation Medications and DC Order Prescriptions: New acetaminophen [Tylenol Extra Strength] 500 mg Tablet 1,000 mg PO TID Qty: 60 0RF Rx Instructions: OTC buspirone 5 mg Tablet 5 mg PO BID Qty: 60 0RF sodium chloride 1 gram Tablet 2 g PO [id number] 7 Days Qty: 28 0RF dexamethasone 4 mg Tablet 4 mg PO QAM Qty: 2 0RF Rx Instructions: x 1 day then take 2 mg daily x 2 days then stop furosemide 20 mg Tablet 20 mg PO QAM Qty: 7 0RF lidocaine 5 % Adhesive Patch,Medicated 1 patch transdermal QAM Qty: 15 0RF Rx Instructions: place on right shoulder at site of pain Continued lisinopril 40 mg tablet 40 mg PO QAM Qty: 90 3RF metformin 500 mg tablet 1,000 mg PO BID 90 Days Qty: 360 3RF Rx Instructions: at lunch and dinner (DME) OneTouch Verio test strips Strip See Rx Instructions .ROUTE .MEDSUPPLY Qty: 10 Rx Instructions: test 1 time daily aspirin 81 mg tablet,delayed release (DR/EC) 81 mg PO DAILY levothyroxine 50 mcg tablet 75 mcg PO .COMPLEX Qty: 135 3RF Rx Instructions: 75 mcg PO ; 6 days a week.; Discontinued azithromycin 250 mg tablet See Rx Instructions PO .COMPLEX Qty: 6 0RF Rx Instructions: take 500 mg today (day 1), then 250 mg for 4 days (days 2-5) PO methylprednisolone [Medrol (Flavio)] 4 mg tablets,dose pack See Rx Instructions PO DAILY 6 Days Qty: 21 0RF Rx Instructions: take as directed on Dosepak PO daily; Discharge Orders: Discharge Order (Routine); Ordered 09/24/21 Ordered By: Celeste Leyva/Other Patient Handouts: High Blood Sugar (Hyperglycemia), Managing Type 2 Diabetes Admission Data Admit Date/Time: 09/20/21 18:07 Attending Provider: Celeste Francois Admit Provider: Renzo Naylor Primary Care Provider: Quentin Beck Other Providers: Johnny Kay ; Yodit Cummings ; Karina Machado ; Debbi Simon Coding Diagnoses Radiculopathy, cervicothoracic region M54.13 Acute hyponatremia E87.1 COVID-19 U07.1 S/P cervical spinal fusion Z98.1 Hypothyroidism E03.9 Hypertension I10 Diabetes mellitus, type 2 E11.9 Depression F32.A
[2021-09-24] MEDS: ENOXAPARIN INJ 40 MG/0.4 ML SYR SQ SCH (17:45)
[2021-09-25] MEDS ORDERED: dexAMETHasone 4 MG TAB PO SCH (09:00)
== END 2021-09-24 18:51 | disposition home or self-care (01) | DRG 73 ==
LOC: 3E 16:03 → ED 16:03 → SUATTDRO 22:04 → 3E 09-20 00:26 → SUATTDRO 09-20 18:07 → 2S 09-21 03:21